=== PATIENT | female | born 1950 | race Caucasian/White ===

== ENCOUNTER → 2020-11-24 12:33 | Outpatient (CLI) | payer SELFPAY ==
[2020-11-12 13:47] VITALS: BMI 29.8
--- NOTE | 2020-11-24 12:40 | ECHOCS_ITS ---
Reason For Study: Afib Procedure This was a 2D Doppler, Color Flow transthoracic echocardiogram. The study was technically difficult. Contrast injection was performed. Exam performed in department. Left Ventricle Normal LV size. Left ventricular systolic function is normal. The estimated ejection fraction is 65 %. Unable to assess diastolic dysfunction. No regional wall motion abnormalities noted. Right Ventricle Normal RV size. Normal systolic function. Atria The left atrium is moderately enlarged. The right atrium is moderately enlarged. No doppler evidence for ASD. Bubble contrast study negative for right to left interatrial shunt. Mitral Valve There is mild mitral annular calcification. Mild diffuse mitral valve thickening. Mild (1+) mitral valve insufficiency. Tricuspid Valve Normal tricuspid valve. Mild to moderate (1-2+) tricuspid valve insufficiency. Right ventricular systolic pressure estimated to be 41 mmHg. Aortic Valve Trisinus/trileaflet aortic valve. Normal aortic valve. Pulmonic Valve The pulmonic valve is not well visualized. Great Vessels The aortic root is not well visualized. Pericardium/Pleural No pericardial effusion. Medication 22 gauge I.V. with prn adaptor inserted into right arm. Diluted definity 2ml given slow IV push to enhance endocardial definition. Performed a rapid injection of agitated mix of 9 cc saline and 1cc air to assess for atrial septal defect. MMode/2D Measurements & Calculations LVIDd: 4.6 cm IVSd: 1.1 cm LA dimension: 4.2 cm LVIDs: 2.9 cm LVPWd: 0.89 cm FS: 36.0 % LAV(MOD-bp): 78.9 ml LA A4 area: 24.3 cm2 RA A4 area: 20.8 cm2 LAV(MOD-bp) Indexed: 45.0 ml/m2 LAV(MOD-sp2): 73.8 ml LAV(MOD-sp4): 74.4 ml Doppler Measurements & Calculations MV E max cyn: 132.1 cm/sec Ao V2 max: 134.6 cm/sec AI max cyn: 463.0 cm/sec Ao max P.3 mmHg AI max P.8 mmHg AI dec slope: 376.0 cm/sec2 AI P1/2t: 360.7 msec LV V1 max: 98.6 cm/sec MR max cyn: 528.0 cm/sec PA V2 max: 100.3 cm/sec LV V1 max P.9 mmHg MR max P.5 mmHg TR max cyn: 308.1 cm/sec TR max P.1 mmHg Interpretation Summary The study was technically difficult. Contrast injection was performed. Left ventricular systolic function is normal. The estimated ejection fraction is 65 %. The left atrium is moderately enlarged. The right atrium is moderately enlarged. There is mild mitral annular calcification. Mild diffuse mitral valve thickening. Mild (1+) mitral valve insufficiency. Mild to moderate (1-2+) tricuspid valve insufficiency. Right ventricular systolic pressure estimated to be 41 mmHg. Unable to assess diastolic dysfunction. Bubble contrast study negative for right to left interatrial shunt. Ordering Physician: Kedar John Referring Physician: Chantelle Treadwell Performed By: Jorge Lutz RCS
== END ==
PROVIDERS: PCP Nurse Practitioner; Referring Provider Internal Medicine Cardiovascular Disease; Visit Provider Internal Medicine Cardiovascular Disease
DX: I48.91 Unspecified atrial fibrillation (principal); I10 Essential (primary) hypertension; E03.9 Hypothyroidism, unspecified
CPT/HCPCS: 93306; Q9957; A4216; C8929

== ENCOUNTER → 2021-06-16 10:08 | Outpatient (CLI) | payer SELFPAY ==
[2021-06-16 10:36] LABS: Hematocrit 42.2 % (37-47); Hemoglobin 13.8 g/dL (12.0-15.0); Mean Corp Hgb Conc 32.7 g/dL (32-36); Mean Corpuscular Hgb 29.2 pg (27.0-32.0); Mean Corpuscular Volume 89.4 fL (81-99); Mean Platelet Vol. 9.6 fl (6.2-12.0); Platelet Count 225 K/mm3 (150-450); RBC Distribution Width CV 13.9 % (11.6-14.6); RBC Distribution Width SD 45.8 fl (35.1-43.9); Red Blood Count 4.72 M/mm3 (4.2-5.4)
[2021-06-16 11:08] LABS: Anion Gap 4 (5-15); BUN 16 mg/dL (7-18); BUN/Creat Ratio 19.1 RATIO (10-20); Calcium,Total 9.5 mg/dL (8.5-10.1); Chloride 105 mmol/L (98-107); Creatinine, Serum 0.84 mg/dL (0.55-1.02); EST Glomerular Filtration Rate 72 mL/min (>60); Est Glom Filt Rate - Afr Amer 87 mL/min (>60); Glucose 108 mg/dL (74-106); Magnesium 2.5 mg/dL (1.6-2.6); Sodium Level 138 mmol/L (136-145); Thyroid Stim Hormone (TSH) 2.25 uIU/mL (0.358-3.74)
== END ==
PROVIDERS: PCP Family Medicine; Visit Provider Physician Assistant Medical
DX: I48.21 Permanent atrial fibrillation (principal); I10 Essential (primary) hypertension
CPT/HCPCS: 36415; 80048; 83735; 84443; 85027

== ENCOUNTER 2021-11-03 19:30 | Inpatient (IN) | payer OTHER, SELFPAY ==
[2021-11-03] VITALS (10 sets, daily range): BP systolic 163–204; BP diastolic 85–111; PULSE 96–117; RESP 17–20; TEMP 36.4–36.7; O2SAT 88–94; BMI 31.4; BMI 27.0
--- NOTE | 2021-11-03 19:46 | EKG12_ITS ---
Test Reason : SOB Blood Pressure : / mmHG Vent. Rate : 113 BPM Atrial Rate : 113 BPM P-R Int : 000 ms QRS Dur : 084 ms QT Int : 278 ms P-R-T Axes : 000 041 018 degrees QTc Int : 381 ms Atrial fibrillation Abnormal ECG Confirmed by SUSIE BROOKS, STEFANY ([id number]), editorial manager JA MITCHELL ([id number]) on 11/04/2021 1:32:03 PM Referred By: PING Confirmed By:MALINI RICHARDS MD
--- NOTE | 2021-11-03 19:49 | EX.ED.DYSGE1 ---
HPI History of Present Illness Chief Complaint: General Illness Narrative Narrative: Patient presents via EMS with generalized weakness and shortness of breath. She has past medical history of hypothyroidism, atrial fibrillation, on Eliquis and takes diltiazem daily. She was seen by Dr. Martinez yesterday and was noted to have wheezing and shortness of breath. It was reported that she tested for COVID and was negative, but because of her wheeziness she was placed on a Z-Alexander. Her states she took 2 tablets yesterday and began feeling tired. She took 1 tablet today. She denies any fever or chills. No dysuria or hematuria. She feels overall weak. [facility] Medical History (Updated 11/03/21 @ 21:50 by Solo Santos MD) Atrial fibrillation Hypertension Hypothyroidism Non-toxic multinodular goiter Home Medications apixaban 5 mg tablet 5 mg PO BID #60 tab 11/12/20 [Rx Last Taken Unknown] diltiazem HCl 120 mg capsule,24 hr,extended release 120 mg PO DAILY #90 cap 02/01/21 [Rx Last Taken Unknown] thyroid (pork) 30 mg tablet 30 mg PO DAILY tab 06/16/21 [History Last Taken Unknown] Allergy/AdvReac Type Severity Reaction Status Date / Time amoxicillin Allergy Unknown unknown Verified 11/03/21 19:41 Penicillins Allergy Unknown Unknown Verified 11/03/21 19:41 Family History Father Myocardial infarction Mother CVA (cerebral vascular accident) Sister Heart disease Surgical History History of total hysterectomy Social History (Updated 11/03/21 @ 21:[address] Maria Ines Masters MD) household members: spouse Smoking Status: Never smoker alcohol intake: never substance use type: does not use caffeine: Yes (occasional) ROS ROS ED ROS Narrative Constitutional: No fever, no chills. Generalized weakness. HEENT: No sore throat. No neck pain. No loss of vision. No rhinorrhea. Cardiovascular: No chest pain. No palpitations. No pedal edema. Respiratory: No cough, positive shortness of breath. Abdominal: No abdominal pain. No nausea. Positive vomiting x3 today, no hematemesis. Genitourinary: No dysuria. No hematuria. Musculoskeletal: No myalgias. No arthralgias. Neurologic: No headaches. No dizziness. No lightheadedness. Skin: No rash. No change in color. Psychiatric: No depression. No anxiety. EXAM Physical Exam Narrative Exam Narrative: Afebrile. Vital signs noted. HEENT: Normocephalic. Atraumatic. PERRL, EOMI. Neck soft and supple. No point tenderness or step off. Cardiovascular: Irregularly irregular tachycardia in the 120's. No murmurs, rubs, or gallops appreciated. Respiratory: No tachypnea. Positive expiratory wheeze bilateral bases. Moving a good amount of air. Gastrointestinal: Abdomen soft, nontender, with normoactive bowel sounds. No rebound or guarding. Neurological: Awake. Alert. Nonfocal, nonlateralizing. Skin: No rash. Normal color. No pallor. Musculoskeletal: No pedal edema. Full range of motion extremities. Const Vital Signs: 11/03/21 19:37 11/03/21 19:42 11/03/21 19:44 Temperature 97.6 F L Temperature Source Oral Pulse Rate 117 H Respiratory Rate 18 18 Respiratory Effort Normal Respiratory Pattern Normal Blood Pressure 204/109 H Blood Pressure Mean 140 Pulse Ox 92 88 Oxygen Delivery Method Room Air Room Air Oxygen Flow Rate (L/min) 11/03/21 19:46 11/03/21 19:49 11/03/21 20:00 Temperature Temperature Source Pulse Rate 117 H Respiratory Rate 18 20 H Respiratory Effort Respiratory Pattern Tachypnea Blood Pressure 192/102 H Blood Pressure Mean 132 Pulse Ox 94 Oxygen Delivery Method Nasal Cannula Oxygen Flow Rate (L/min) 2 11/03/21 20:14 11/03/21 20:37 11/03/21 21:18 Temperature 98 F Temperature Source Oral Pulse Rate 109 H 101 H 96 Respiratory Rate 17 20 H 18 Respiratory Effort Respiratory Pattern Blood Pressure 183/111 H 163/108 H 170/85 H Blood Pressure Mean 135 126 113 Pulse Ox 92 92 94 Oxygen Delivery Method Nasal Cannula Nasal Cannula Nasal Cannula Oxygen Flow Rate (L/min) 2 3 3 MDM MDM MDM Narrative Medical decision making narrative: Comprehensive work-up was pursued. Sepsis work-up was pursued because she had a low temperature. Her oxygen level did drop into the high 80s while at rest. She was placed on nasal cannula oxygen. She will be given albuterol/Atrovent nebulized treatment. I do feel that she may be having problems with pneumonia. She will be reswabbed for COVID. EKG demonstrates atrial fibrillation at 113 bpm. She was given a bolus of diltiazem 10 mg intravenously. She has elevated white count of 19.7. Lactic acid is normal at 1.3. Chest x-ray shows subtle increased reticular opacities in the right lower lobe without alveolar consolidation which may represent atypical infection or possibly scarring or atelectasis. Her oxygen did require to be increased to 3 L. Her CMP returns with a low sodium of 115, and hypokalemia of 3.0. She has normal creatinine. Glucose appropriately elevated at 194. High-sensitivity troponin negative at 15. BNP is slightly elevated at 194 which I think is more nonspecific. Her chest x-ray shows atelectasis versus increased reticular opacities in the right lower lobe. This could be an atypical infection. She has already received Zithromax. She is allergic to penicillins. I will start her on antibiotics. Her COVID swab is negative. Lactic acid normal at 1.3. Urinalysis shows no evidence of infection. Patient will be discussed with the hospitalist for admission to the PCU given her low sodium of 115. I have deferred antibiotics to the hospitalist. Disposition is admitted in guarded condition. Lab Data Attestation: I reviewed the patient's lab results. Labs: Laboratory Results - last 24 hr 11/03/21 11/03/21 11/03/21 19:55 19:55 19:55 WBC 19.7 H RBC 4.55 Hgb 13.3 Hct 37.6 MCV 82.6 MCH 29.2 MCHC 35.4 RDW Std Deviation 37.0 RDW Coeff of Ed 12.2 Plt Count 441 MPV 8.4 Immature Gran % (Auto) 3.000 H Neut % (Auto) 84.5 H Lymph % (Auto) 7.3 L [place] % (Auto) 4.8 Eos % (Auto) 0.1 Baso % (Auto) 0.3 Absolute Neuts (auto) 16.7 H Absolute Lymphs (auto) 1.44 Nucleated RBC % 0 Sodium 115 L* Potassium 3.0 L Chloride 76 L Carbon Dioxide 27.0 Anion Gap 12 BUN 8 Creatinine 0.68 Estim Creat Clear Calc 45.20 Est GFR (MDRD) Af Amer 110 Est GFR (MDRD) Non-Af 91 BUN/Creatinine Ratio 11.8 Glucose 194 H Lactic Acid Calcium 8.6 Magnesium Ferritin Total Bilirubin 1.30 H AST 63 H ALT 82 H Alkaline Phosphatase 88 Lactate Dehydrogenase Troponin I High Sens 15 B-Natriuretic Peptide 194.6 H Total Protein 7.8 Albumin 3.0 L Globulin 4.8 H Albumin/Globulin Ratio 0.6 L TSH Free T4 Urine Color Urine Clarity Urine pH Ur Specific [place] Urine Protein Urine Glucose (UA) Urine Ketones Urine Occult Blood Urine Nitrite Urine Bilirubin Urine Urobilinogen Ur Leukocyte Esterase Urine RBC Urine WBC Ur Squamous Epith Cells Urine Bacteria Urine Mucus 11/03/21 11/03/21 11/03/21 19:55 20:04 21:00 WBC RBC Hgb Hct MCV MCH MCHC RDW Std Deviation RDW Coeff of Ed Plt Count MPV Immature Gran % (Auto) Neut % (Auto) Lymph % (Auto) [place] % (Auto) Eos % (Auto) Baso % (Auto) Absolute Neuts (auto) Absolute Lymphs (auto) Nucleated RBC % Sodium Potassium Chloride Carbon Dioxide Anion Gap BUN Creatinine Estim Creat Clear Calc Est GFR (MDRD) Af Amer Est GFR (MDRD) Non-Af BUN/Creatinine Ratio Glucose Lactic Acid 1.3 Calcium Magnesium 2.2 Ferritin 473 H Total Bilirubin AST ALT Alkaline Phosphatase Lactate Dehydrogenase 358 H Troponin I High Sens B-Natriuretic Peptide Total Protein Albumin Globulin Albumin/Globulin Ratio TSH 1.17 Free T4 1.11 Urine Color Yellow Urine Clarity Clear Urine pH 7.0 Ur Specific [place] 1.010 Urine Protein 15 H Urine Glucose (UA) 100 H Urine Ketones 50 H Urine Occult Blood Negative Urine Nitrite Negative Urine Bilirubin Negative Urine Urobilinogen Normal Ur Leukocyte Esterase Negative Urine RBC 0 SEEN Urine WBC 0 SEEN Ur Squamous Epith Cells 0 SEEN Urine Bacteria 0 SEEN Urine Mucus 0 SEEN Radiography Diagnostic Testing: Clinical Impression(s) from Imaging Studies Chest X-Ray 11/03/21 20:10 IMPRESSION: 1. Subtle increased reticular opacities right lower lobe without alveolar consolidation may represent atypical infection or possibly scarring and/or atelectasis. 2. Splayed appearance of the right and left mich may be indicative of left atrial enlargement. Electronically Signed: Jesús Rodarte DO at 20:23 EST Tel , Service support , Discharge Plan Triage Chief Complaint: General Illness ED Provider: Solo Santos Dx/Rx/DC Orders Clinical Impression: Atrial fibrillation, Pneumonia, Hypoxia, Hyponatremia, Hypokalemia, Weakness Primary Care Provider: Armando Martinez
[2021-11-03] MEDS: Ipratropium/Albuterol Sulfate 3 ML AMPUL.NEB INHALATION (19:59)
[2021-11-03 20:02] LABS: Absolute Lymphocyte Count 1.44 X10^3/uL (0.83-4.51); Absolute Neutrophil Count 16.7 X10^3/uL (2.0-7.7); Basophil# 0.05 X10^3/uL; Basophil% 0.3 % (0-1); Eosinophil# 0.01 X10^3/uL; Eosinophils% 0.1 % (0-5); Hematocrit 37.6 % (37-47); Hemoglobin 13.3 g/dL (12.0-15.0); Lymphocyte # 1.44 X10^3/ul (0.83-4.51); Lymphocyte % 7.3 % (19-41); Mean Corp Hgb Conc 35.4 g/dL (32-36); Mean Corpuscular Hgb 29.2 pg (27.0-32.0); Mean Corpuscular Volume 82.6 fL (81-99); Mean Platelet Vol. 8.4 fl (6.2-12.0); Monocyte# 0.95 X10^3/uL; Monocyte% 4.8 % (0-10); NRBC Flagged by Analyzer 0 % (0-5); Neutrophil # 16.67 X10^3/uL (2.7-7.7); Neutrophil % 84.5 % (47-70); Platelet Count 441 K/mm3 (150-450); RBC Distribution Width CV 12.2 % (11.6-14.6); Red Blood Count 4.55 M/mm3 (4.2-5.4); White Blood Count 19.7 K/mm3 (4.4-11.0)
[2021-11-03] MEDS: dilTIAZem 25 MG/5 ML Vial 10 MG IV BOLUS (20:06)
--- NOTE | 2021-11-03 20:10 | RAD_ITS ---
INDICATION: shortness of breath EXAMINATION/TECHNIQUE: X-RAY - XR Chest 1 View COMPARISON: None. FINDINGS: LINES/DEVICES: None. LUNGS: Symmetric normal lung volumes. In the right lower lobe, lower hilar region there is subtle increased reticular opacities without definite alveolar consolidation. No obscuration of heart border or right hemidiaphragm. No airspace opacity or abnormal interstitial pattern. No nodule or mass. No pleural effusion or pneumothorax. MEDIASTINUM AND CARDIOVASCULAR STRUCTURES: Normal size and contour of the cardiomediastinal silhouette. No evidence of pulmonary vascular congestion. There is nonspecific splaying of the mich potentially representing left atrial enlargement. BONES AND SOFT TISSUES: No abnormality within limits of the exam. RAD/Chest 1 View (Portable) IMPRESSION: 1. Subtle increased reticular opacities right lower lobe without alveolar consolidation may represent atypical infection or possibly scarring and/or atelectasis. 2. Splayed appearance of the right and left mich may be indicative of left atrial enlargement. Electronically Signed: Jesús Rodarte DO at 20:23 EST Tel , Service support ,
[2021-11-03 20:40] LABS: Lactic Acid 1.3 mmol/L (0.4-1.9)
[2021-11-03 20:41] LABS: BNP,B-Type NATRIURETIC PEPTIDE 194.6 pg/mL (0-100)
[2021-11-03 21:03] LABS: Bacteria 0 SEEN /hpf (None Seen); Mucous, Urine 0 SEEN /hpf (<or=2+); Red Blood Cells-Urine 0 SEEN /hpf (0-5); Squamous Epithelial Cells - UA 0 SEEN /hpf (5-10); White Blood Cells 0 SEEN /hpf (0-5)
[2021-11-03 21:05] LABS: Color, Urine Yellow (Yellow); Glucose, Dipstick 100 mg/dl (Normal); Ketone-Dipstick 50 mg/dl (Negative); Leukocyte Esterase-Dipstick Negative /ul (Negative); Nitrite-Dipstick Negative (Negative); Occult Blood-Urine Negative /ul (Negative); Protein-Dipstick 15 mg/dl (Negative); Urine Bilirubin Dipstick Negative (Negative); Urine Clarity Clear (Clear); Urine Urobilinogen Normal (Normal)
[2021-11-03 21:11] LABS: ALB/GLOB Ratio 0.6 RATIO (0.9-2.4); AST(SGOT) 63 U/L (15-37); Alanine Aminotransfer ALT/SGPT 82 U/L (13-56); Alkaline Phosphatase 88 U/L (45-117); Anion Gap 12 (5-15); BUN 8 mg/dL (7-18); BUN/Creat Ratio 11.8 RATIO (10-20); Calcium,Total 8.6 mg/dL (8.5-10.1); Chloride 76 mmol/L (98-107); Creatinine, Serum 0.68 mg/dL (0.55-1.02); EST Glomerular Filtration Rate 91 mL/min (>60); Est Glom Filt Rate - Afr Amer 110 mL/min (>60); Globulin 4.8 g/dL (2.2-4.2); Glucose 194 mg/dL (74-106); Protein, Total 7.8 g/dL (6.4-8.2); Sodium Level 115 mmol/L (136-145); Troponin-I HS 15 pg/mL (3.0-54.0)
--- NOTE | 2021-11-03 21:35 | HP.PCM.HOS_ITS ---
HPI - General General Date of Admission: 11/03/21 Date of Service: 11/03/21 Chief Complaint: Cough, fatigue, malaise. HPI Narrative The patient is a 71 y/o Antony F w/ PMHx: PAF, HTN, Hypothyroidism w/ Hx nontoxic multinodular goiter, Obesity who presents to the [facility] ED on 11/03/21 with history of progressively worsening fatigue, malaise, cough, dyspnea as well as nausea without emesis in addition to wheezing over the last several days (7 days total) with PCP evaluation the day prior with start of Z-Alexander at that time with no significant improvement prompting ED evaluation. She did have a COVID test in the office at that time that was negative. Her reports feeling well without any recent illness. She is not vaccinated against COVID. Work-up in the ED included T97.6, heart rate initially 117 with most recent repeat 101, BP i nitially 204/109 with most recent repeat 163/108, respiratory rate 18, down to 88% on room air with improvement to 92% on 3 L nasal cannula, CBC with WBC 19.7, hemoglobin 13.3, platelet 441 with left shift, CMP with sodium 115, potassium 3, chloride 76, glucose 194, total bilirubin 1.30, AST/ALT 63/82, lactic acid 1.3, troponin high-sensitivity 15, BNP 194.6, urinalysis unremarkable, COVID rapid a ntigen is negative, chest x-ray with subtle increased reticular opacities right lower lobe without alveolar consolidation possibly atypical infection or scarring or atelectasis, splayed appearance right and left mich possibly indicative of atrial enlargement, rapid COVID antigen negative, blood culture x2 pending per ED, urine culture pending per ED, EKG with atrial fibrillation with RVR. In the ED patient ministered DuoNeb therapy as well as diltiazem 10 mg bolus x1. [facility] Medical History (Updated 11/03/21 @ 21:50 by Solo Santos MD) Atrial fibrillation Hypertension Hypothyroidism Non-toxic multinodular goiter Home Medications apixaban 5 mg tablet 5 mg PO BID #60 tab 11/12/20 [Rx Last Taken Unknown] diltiazem HCl 120 mg capsule,24 hr,extended release 120 mg PO DAILY #90 cap 02/01/21 [Rx Last Taken Unknown] thyroid (pork) 30 mg tablet 30 mg PO DAILY tab 06/16/21 [History Last Taken Unknown] Allergy/AdvReac Type Severity Reaction Status Date / Time amoxicillin Allergy Unknown unknown Verified 11/03/21 19:41 Penicillins Allergy Unknown Unknown Verified 11/03/21 19:41 Family History Father Myocardial infarction Mother CVA (cerebral vascular accident) Sister Heart disease Surgical History History of total hysterectomy Social History (Updated 11/03/21 @ 21:[address] Maria Ines Masters MD) household members: spouse Smoking Status: Never smoker alcohol intake: never substance use type: does not use caffeine: Yes (occasional) ROS ROS Narrative Admission Review of Systems: CONSTITUTIONAL: No weight loss, fever, chills, + weakness or fatigue. HEENT: Eyes: No visual loss, blurred vision, double vision or yellow sclerae. Ears, Nose, Throat: No hearing loss, sneezing, sore throat, congestion. SKIN: No rash or itching, lesions, wounds. CARDIOVASCULAR: No chest pain, chest pressure or chest discomfort, palpitations, edema, orthopnea, syncopal events. RESPIRATORY: + Shortness of breath, cough, No marked sputum, wheezing, hemoptysis. GASTROINTESTINAL: + Anorexia, nausea without vomiting, No diarrhea, abdominal pain, melena, BRBPR. GENITOURINARY: No dysuria, frequency, urgency or retention. NEUROLOGICAL: No headache, dizziness, syncope, paralysis, ataxia, numbness or tingling in the extremities, focal weakness, change in bowel or bladder control, seizure. MUSCULOSKELETAL: + Muscle, back pain, joint pain or stiffness. HEMATOLOGIC: No anemia, bleeding or bruising. LYMPHATICS: No enlarged nodes. No history of splenectomy. PSYCHIATRIC: No history of depression or anxiety. ENDOCRINOLOGIC: No reports of sweating, cold or heat intolerance. No polyuria or polydipsia. ALLERGIES: No history of asthma, hives, eczema or rhinitis. Vital Signs Vital Signs Vital Signs: 11/03/21 19:37 11/03/21 19:42 11/03/21 19:44 Temperature 97.6 F L Temperature Source Oral Pulse Rate 117 H Respiratory Rate 18 18 Respiratory Effort Normal Respiratory Pattern Normal Blood Pressure 204/109 H Blood Pressure Mean 140 Pulse Ox 92 88 Oxygen Delivery Method Room Air Room Air Oxygen Flow Rate (L/min) 11/03/21 19:46 11/03/21 19:49 11/03/21 20:00 Temperature Temperature Source Pulse Rate 117 H Respiratory Rate 18 20 H Respiratory Effort Respiratory Pattern Tachypnea Blood Pressure 192/102 H Blood Pressure Mean 132 Pulse Ox 94 Oxygen Delivery Method Nasal Cannula Oxygen Flow Rate (L/min) 2 11/03/21 20:14 11/03/21 20:37 11/03/21 21:18 Temperature 98 F Temperature Source Oral Pulse Rate 109 H 101 H 96 Respiratory Rate 17 20 H 18 Respiratory Effort Respiratory Pattern Blood Pressure 183/111 H 163/108 H 170/85 H Blood Pressure Mean 135 126 113 Pulse Ox 92 92 94 Oxygen Delivery Method Nasal Cannula Nasal Cannula Nasal Cannula Oxygen Flow Rate (L/min) 2 3 3 Weight Weight: 183 lb 3.266 oz Body Mass Index (BMI) 31.4 Physical Exam Narrative Physical Examination: General: Awake, alert, oriented x 3 and cooperative, seated upright in the ED bed, fatigued and ill-appearing, no evidence of any respiratory distress. Skin: Normal color, normal turgor, no icterus, no cyanosis. HEENT: AT/NC, EOMI, PERRLA, dry MM, no carotid bruits or JVD noted. Lungs: Diffusely diminished, greater bases, increased respiratory rate, no rales, ronchi or wheezing. Heart: Tachycardic, irregular, improving; no gallop, rub audible. Abdomen: Soft, nontender to palpation, nondistended, obese, distant hypoactive bowel sounds, no obvious HSM. Extremities: No cyanosis, no clubbing, mild bilateral ankle not markedly pitting edema. Neurological: Patient awake, alert, oriented as noted, cognitive function intact; pupils equally reactive to light and accommodation, cranial nerves II- XII grossly normal, moving all 4 extremities, no focal deficits, strength moderately to severely globally decreased secondary to acute presentation. Psychiatric: Affect appears fatigued, ill-appearing, no acute evidence of depressive or anxiety feelings. Results Lab / Micro Data Result Diagrams: 11/03/21 19:55 11/03/21 19:55 Labs: Laboratory Results - last 24 hr 11/03/21 19:55: WBC 19.7 H, RBC 4.55, Hgb 13.3, Hct 37.6, MCV 82.6, MCH 29.2, MCHC 35.4, RDW Std Deviation 37.0, RDW Coeff of Ed 12.2, Plt Count 441, MPV 8.4, Immature Gran % (Auto) 3.000 H, Neut % (Auto) 84.5 H, Lymph % (Auto) 7.3 L, [place] % (Auto) 4.8, Eos % (Auto) 0.1, Baso % (Auto) 0.3, Absolute Neuts (auto) 16.7 H, Absolute Lymphs (auto) 1.44, Nucleated RBC % 0 11/03/21 19:55: Sodium 115 L*, Potassium 3.0 L, Chloride 76 L, Carbon Dioxide 27.0, Anion Gap 12, BUN 8, Creatinine 0.68, Estim Creat Clear Calc 45.20, Est GFR (MDRD) Af Amer 110, Est GFR (MDRD) Non-Af 91, BUN/Creatinine Ratio 11.8, Glucose 194 H, Calcium 8.6, Total Bilirubin 1.30 H, AST 63 H, ALT 82 H, Alkaline Phosphatase 88, Troponin I High Sens 15, Total Protein 7.8, Albumin 3.0 L, Globulin 4.8 H, Albumin/Globulin Ratio 0.6 L 11/03/21 19:55: B-Natriuretic Peptide 194.6 H 11/03/21 20:04: Lactic Acid 1.3 11/03/21 21:00: Urine Color Yellow, Urine Clarity Clear, Urine pH 7.0, Ur Specific [place] 1.010, Urine Protein 15 H, Urine Glucose (UA) 100 H, Urine Ke tones 50 H, Urine Occult Blood Negative, Urine Nitrite Negative, Urine Bilirubin Negative, Urine Urobilinogen Normal, Ur Leukocyte Esterase Negative, Urine RBC 0 SEEN, Urine WBC 0 SEEN, Ur Squamous Epith Cells 0 SEEN, Urine Bacteria 0 SEEN, Urine Mucus 0 SEEN Micro: Microbiology 11/03/21 20:06 Nasal Secretion SARS-CoV-2 Antigen (Rapid) - Final Radiology Impression Chest X-Ray 11/03/21 20:10 IMPRESSION: 1. Subtle increased reticular opacities right lower lobe without alveolar consolidation may represent atypical infection or possibly scarring and/or atelectasis. 2. Splayed appearance of the right and left mich may be indicative of left atrial enlargement. Electronically Signed: Jesús Rodarte at 20:23 EST Tel , Service support , Assessment & Plan Assessment/Plan (1) Pneumonia: QUALIFIERS: Laterality: right Lung location: lower lobe of lung Pneumonia type: due to unspecified organism Qualified Code(s): J18.9 - Pneumonia, unspecified organism (2) Hypoxia: (3) Atrial fibrillation with RVR: (4) Acute hyponatremia: (5) Elevated LFTs: PLAN: The patient is a 71 y/o F w/ PMHx: PAF, HTN, Hypothyroidism w/ Hx nontoxic multinodular goiter, Obesity who presents to the [facility] ED on 11/03/21 with history of progressively worsening fatigue, malaise, cough, dyspnea as well as nausea without emesis in addition to wheezing over the last several days with PCP evaluation the day prior with start of Z-Alexander at that time with no significant improvement prompting ED evaluation. #1. Community Acquired Pneumonia with Hypoxia: CXR in the ED w/ subtle increased reticular opacities right lower lobe possibly pneumonia. Will admit to PCU given #2, maintain on oxygen with wean as tolerated to room air, PRN albuterol, maintained on IV Levaquin given allergies noted, HOB, IS parameters w/ pending sputum cultures and urine antigens. Respiratory panel is not available. Bld cx x 2 obtained in the ED and pending. Will request COVID PCR to be certain given timeline and request COVID panel. #2. Paroxsymal atrial fibrillation with RVR likely secondary to #1: EKG in ED w/ atrial fibrillation w/ RVR. Patient administered diltiazem 10 mg bolus x1 in ED. Will maintain on telemetry, obtain cardiac enzyme serial set, obtain magnesium level, 11/24/2020 echocardiogram with EF 65%, moderately enlarged LA and RA, mild MVI, mild to moderate TVR, RVSP 41 mmHg, negative bubble contrast shunt study, obtain TSH/FT4 level, continue patient home Eliquis regimen, given rate improvement we will continue patient home diltiazem regimen with dose x 1 now but may alter if rate further increases. #3. Acute hyponatremia, suspected component hypovolemic: Admission sodium 115, chloride 76, will judiciously hydrate, serial BMPs will be obtained to avoid significant quick overcorrection, will maintain on property assessment monitor, TSH/FT4, magnesium, FeNa, Uosm requested. #4. Elevated bilirubin, LFTs: Likely secondary to acute presentation #1, total bilirubin 1.30, AST/ALT 63/82, awaiting COVID repeat testing is certainly could also be the etiology, we will continue treatment as noted, repeat CMP in a.m. #5. Hypokalemia: Admission K+ 3.0, magnesium level requested, supplementation given, repeat level in AM. #6. History of multinodular goiter with hypothyroidism: We will continue thyroid supplementation. TSH and FT4 pending. #7. Hypertension: We will continue patient home diltiazem regimen, bolus given in the ED, resume oral regimen with dose now as noted above, as needed IV hydralazine. #8. Obesity: Weight loss and lifestyle changes encouraged. #9. DVT prophylaxis: SCDs, continue home Eliquis regimen. #10. CODE status: Patient does not have healthcare power of staff attorney or living will in place. Given presentation with hypoxia with pneumonia, still possibly COVID with pending work-up, discussed CODE status at length including difference between FULL code, DNR-CCA and DNR-CC status. Following discussions about the differences in these status, requested Full Code status. Advanced Care Planning Face to Face Time: 16 minutes. Charges/Coding Visit Charges Inpatient E&M: 31550 Init Hosp L3 Procedures Hospitalists Procedures: 16798 Advncd Care Plan 30 Min
[2021-11-03] MEDS: 0.9% Normal Saline 1,000 ML 200 ML IV (22:03)
[2021-11-03] MEDS: Potassium Chloride 10mEq/100mL 10 MEQ/100 ML IV.SOLN. 100 MEQ IV BOLUS ×2 (22:03→23:03)
[2021-11-03 22:11] LABS: Ferritin 473 ng/mL (8-252); LDH 358 U/L (84-246); Magnesium 2.2 mg/dL (1.6-2.6); T4 Free Direct 1.11 ng/dL (0.76-1.46); Thyroid Stim Hormone (TSH) 1.17 uIU/mL (0.358-3.74)
[2021-11-03 22:29] LABS: D-Dimer Quantitative (DVT/PE) 0.92 FEU/ug/m (0.27-0.49)
[2021-11-03 22:36] LABS: Procalcitonin 0.05 ng/mL (0.00-0.09)
--- NOTE | 2021-11-03 23:01 | PCS.PANDOC ---
PANDEMIC DOCUMENTATION INITIATED: Date: 11/03/21 Time: 2199
[2021-11-03] MEDS: levoFLOXacin IV 750 MG/150 ML BAG 100 MG IV (23:18)
[2021-11-03] MEDS: APIXABAN 5 MG TABLET PO (23:18)
[2021-11-03] MEDS: BENZOCAINE/MENTHOL 1 LOZENGE MUCOUS MEM (23:18)
[2021-11-03] MEDS: 0.9% Normal Saline 1,000 ML 125 ML IV (23:19)
[2021-11-03 23:30] LABS: Anion Gap 12 (5-15); BUN 7 mg/dL (7-18); BUN/Creat Ratio 13.5 RATIO (10-20); Calcium,Total 7.9 mg/dL (8.5-10.1); Chloride 77 mmol/L (98-107); Creatinine, Serum 0.52 mg/dL (0.55-1.02); EST Glomerular Filtration Rate 124 mL/min (>60); Est Glom Filt Rate - Afr Amer 150 mL/min (>60); Glucose 178 mg/dL (74-106); Potassium 3.3 mmol/L (3.5-5.1); Sodium Level 116 mmol/L (136-145)
[2021-11-03] MEDS: MELATONIN 3 MG TABLET PO (23:50)
[2021-11-04] VITALS (19 sets, daily range): BP systolic 98–169; BP diastolic 68–95; PULSE 75–120; RESP 14–24; TEMP 36.5–37; O2SAT 92–97
[2021-11-04] MEDS: Potassium Chloride 10mEq/100mL 10 MEQ/100 ML IV.SOLN. 100 MEQ IV BOLUS ×2 (00:03→01:14)
[2021-11-04 00:56] LABS: Anion Gap 11 (5-15); BUN 6 mg/dL (7-18); BUN/Creat Ratio 12.2 RATIO (10-20); Calcium,Total 7.8 mg/dL (8.5-10.1); Chloride 78 mmol/L (98-107); Creatinine, Serum 0.49 mg/dL (0.55-1.02); EST Glomerular Filtration Rate 133 mL/min (>60); Est Glom Filt Rate - Afr Amer 160 mL/min (>60); Glucose 188 mg/dL (74-106); Potassium 3.6 mmol/L (3.5-5.1); Sodium Level 116 mmol/L (136-145); Troponin-I HS 22 pg/mL (3.0-54.0)
[2021-11-04] MEDS: Ondansetron 4 MG/2 ML Vial IV (00:58)
[2021-11-04] MEDS: 0.9% Saline Lock 10 ML Syringe IV ×5 (00:58→20:03)
[2021-11-04] MEDS: proCHLORPERazine 10 MG/2 ML Vial 5 MG IV (01:30)
[2021-11-04] MEDS: dilTIAZem 25 MG/5 ML Vial 20 MG IV BOLUS (01:52)
[2021-11-04 02:23] LABS: Absolute Lymphocyte Count 1.52 X10^3/uL (0.83-4.51); Absolute Neutrophil Count 17.6 X10^3/uL (2.0-7.7); Basophil# 0.05 X10^3/uL; Basophil% 0.2 % (0-1); Eosinophil# 0.03 X10^3/uL; Eosinophils% 0.1 % (0-5); Hematocrit 34.1 % (37-47); Hemoglobin 12.3 g/dL (12.0-15.0); Lymphocyte # 1.52 X10^3/ul (0.83-4.51); Lymphocyte % 7.2 % (19-41); Mean Corp Hgb Conc 36.1 g/dL (32-36); Mean Corpuscular Hgb 29.1 pg (27.0-32.0); Mean Corpuscular Volume 80.8 fL (81-99); Mean Platelet Vol. 8.4 fl (6.2-12.0); Monocyte# 1.45 X10^3/uL; Monocyte% 6.8 % (0-10); NRBC Flagged by Analyzer 0 % (0-5); Neutrophil # 17.55 X10^3/uL (2.7-7.7); Neutrophil % 82.7 % (47-70); Platelet Count 396 K/mm3 (150-450); RBC Distribution Width CV 11.9 % (11.6-14.6); Red Blood Count 4.22 M/mm3 (4.2-5.4); White Blood Count 21.2 K/mm3 (4.4-11.0)
[2021-11-04 02:42] LABS: Troponin-I HS 26 pg/mL (3.0-54.0)
[2021-11-04 02:48] LABS: Anion Gap 9 (5-15); BUN 6 mg/dL (7-18); BUN/Creat Ratio 11.3 RATIO (10-20); Calcium,Total 7.7 mg/dL (8.5-10.1); Chloride 80 mmol/L (98-107); Creatinine, Serum 0.53 mg/dL (0.55-1.02); EST Glomerular Filtration Rate 121 mL/min (>60); Est Glom Filt Rate - Afr Amer 147 mL/min (>60); Glucose 165 mg/dL (74-106); Potassium 3.8 mmol/L (3.5-5.1); Sodium Level 116 mmol/L (136-145)
--- NOTE | 2021-11-04 03:23 | CT_ITS ---
STUDY: CTA CHEST REASON FOR EXAM: Female, 71 years old. Elevated D-dimer RADIATION DOSAGE (If Supplied By Facility): CTDIvol = ( 13.17 ) mGy, DLP = ( 519.98 ) mGycm TECHNIQUE: The examination was performed with the intravenous administration of 75 mL of Isovue-370. Post-processing of the angiographic images was performed, with multiplanar reformation and 3D reconstruction. Individualized dose optimization techniques were used for this CT. COMPARISON: None. FINDINGS: Cardiac monitoring leads are present. Normal enhancement of the main pulmonary artery and right and left pulmonary arteries. Normal enhancement of the bilateral peripheral pulmonary arteries. There is no demonstrated pulmonary embolism. There is prominence of the main pulmonary arteries with peripheral pulmonary vascular congestion. There is atherosclerotic calcification of the aortic arch with tortuosity. There is no demonstrated aortic dissection. There is cardiomegaly. There are calcifications of the coronary arteries. There are visualized mediastinal lymph nodes, which are within normal size limits, and with normal morphology. Normal hilar regions. Normal visualized trachea and bronchi. The lungs are well expanded. There is airspace consolidation in both lower lobes, left greater than right. There are some patchy groundglass attenuation in the right upper lobe. There appear to be small pleural effusions. Normal chest wall structures. Normal osseous structures. There is diffuse enlargement of the adrenal glands suggesting adrenal hyperplasia. CT/CTA Chest W/WO Contrast IMPRESSION: 1. No CTA demonstrated pulmonary embolism or arterial dissection. 2. Cardiomegaly and pulmonary edema. 3. Bilateral lower lobe airspace consolidation consistent with pneumonia. Electronically Signed: Gudelia Lara MD at 5:12 EST , Service support ,
[2021-11-04 03:30] LABS: Urine Sodium 126 mmol/L (Not Establ.)
[2021-11-04 03:31] LABS: Osmolality, Urine 418 mOsm/KG
[2021-11-04 05:21] LABS: M R Staph aureus DNA By PCR Negative (Negative); Probe Check PASS; Specimen Processing Control PASS
--- NOTE | 2021-11-04 05:44 | ECHOD_ITS ---
Reason For Study: CHF Procedure This was a 2D Doppler, Color Flow transthoracic echocardiogram. The study was technically difficult. Exam performed portable in patient room. Left Ventricle Normal LV size. The estimated ejection fraction is 65 %. No evidence for diastolic dysfunction. No regional wall motion abnormalities noted. Right Ventricle Normal RV size. Normal systolic function. Atria The left atrium is severely enlarged. The right atrium is moderately enlarged. No doppler evidence for ASD. Mitral Valve There is no mitral valve stenosis. Moderate (2+) mitral valve insufficiency. Tricuspid Valve There is no tricuspid stenosis. Moderate (2+) tricuspid valve insufficiency. Pulmonary artery systolic pressure is 60 mmHg. Aortic Valve Trisinus/trileaflet aortic valve. There is no aortic stenosis. Mild (1+) aortic valve insufficiency. Pulmonic Valve There is no pulmonic valvular stenosis. No pulmonic valve insufficiency. Great Vessels Normal aortic root. Pericardium/Pleural No pericardial effusion. MMode/2D Measurements & Calculations LVIDd: 4.4 cm IVSd: 0.85 cm Ao root diam: 3.2 cm LVIDs: 3.0 cm LVPWd: 0.85 cm RVDd: 3.9 cm FS: 32.7 % LAV(MOD-bp): 82.7 ml LVAd ap4: 21.8 cm2 LVAd ap2: 22.9 cm2 LAV(MOD-bp) Indexed: 46.9 ml/m2 LVLd ap4: 6.6 cm LVLd ap2: 6.7 cm LAV(MOD-sp2): 80.8 ml EDV(MOD-sp4): 60.3 ml EDV(MOD-sp2): 68.2 ml LAV(MOD-sp4): 76.8 ml EDV(sp4-el): 61.1 ml EDV(sp2-el): 66.8 ml LVAs ap4: 12.4 cm2 LVAs ap2: 13.1 cm2 LVLs ap4: 5.2 cm LVLs ap2: 6.0 cm ESV(MOD-sp4): 24.6 ml ESV(MOD-sp2): 25.5 ml ESV(sp4-el): 24.7 ml ESV(sp2-el): 24.1 ml EF(MOD-sp4): 59.2 % EF(MOD-sp2): 62.5 % EF(sp4-el): 59.6 % SV(MOD-sp4): 35.7 ml SV(MOD-sp2): 42.6 ml SV(sp4-el): 36.4 ml LA dimension(2D): 4.8 cm LA A4 area: 25.0 cm2 RA A4 area: 21.2 cm2 Doppler Measurements & Calculations MV E max cyn: 159.6 cm/sec Ao V2 max: 148.4 cm/sec AI max cyn: 459.1 cm/sec Ao max P.9 mmHg AI max P.4 mmHg AI dec slope: 438.7 cm/sec2 AI P1/2t: 306.5 msec LV V1 max: 110.5 cm/sec TR max cyn: 350.3 cm/sec LV V1 max P.9 mmHg TR max P.1 mmHg ECHO/Echo Complete Interpretation Summary The estimated ejection fraction is 65 %. No evidence for diastolic dysfunction. The left atrium is severely enlarged. The right atrium is moderately enlarged. Moderate (2+) mitral valve insufficiency. Moderate (2+) tricuspid valve insufficiency. Pulmonary artery systolic pressure is 60 mmHg. Mild (1+) aortic valve insufficiency. Ordering Physician: Maria Ines Masters Referring Physician: DEE MADDOX Performed By: Sylvia Brown, RDCS, RVT
[2021-11-04] MEDS: Thyroid 15 MG Tablet 30 MG PO (05:54)
[2021-11-04] MEDS: Metoprolol Tartrate 5 MG/5 ML Vial IV (06:47)
[2021-11-04 07:07] LABS: ALB/GLOB Ratio 0.7 RATIO (0.9-2.4); AST(SGOT) 51 U/L (15-37); Alanine Aminotransfer ALT/SGPT 67 U/L (13-56); Albumin, Serum 2.7 g/dL (3.2-5.0); Alkaline Phosphatase 75 U/L (45-117); Anion Gap 8 (5-15); BUN 6 mg/dL (7-18); BUN/Creat Ratio 12.2 RATIO (10-20); Calcium,Total 8.1 mg/dL (8.5-10.1); Chloride 79 mmol/L (98-107); Creatinine, Serum 0.49 mg/dL (0.55-1.02); EST Glomerular Filtration Rate 132 mL/min (>60); Est Glom Filt Rate - Afr Amer 160 mL/min (>60); Glucose 161 mg/dL (74-106); Potassium 3.5 mmol/L (3.5-5.1); Protein, Total 6.7 g/dL (6.4-8.2); Sodium Level 113 mmol/L (136-145)
[2021-11-04] MEDS: Budesonide Respules 0.5 MG/2 ML AMPUL.NEB. INHALATION ×2 (08:42→21:48)
[2021-11-04] MEDS: dilTIAZem CD 120 MG Capsule PO (09:59)
[2021-11-04] MEDS: APIXABAN 5 MG TABLET PO ×2 (09:59→20:04)
--- NOTE | 2021-11-04 10:39 | PCM.CONS.R ---
Assessment & Plan Assessment/Plan (1) Hyponatremia: PLAN: - The patient has severe hyponatremia. However, there are no worrisome symptoms of hyponatremia such as headache, nausea, or ataxia. She is not confused. -Therefore, there is no need for hypertonic saline today. -The patient appears to be euvolemic on exam. 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 -I encouraged the patient to increase protein/solute intake. This will help the kidney obligate water loss. -I will also limit water intake to 1.5 L/day. -I will check urine sodium and potassium. If the summation of urine sodium and potassium is greater than serum sodium, I will add furosemide to help correct hyponatremia more quickly. -We should check serum sodium every 6 hours today. (2) Hypertension: PLAN: - BP is acceptable. -The patient was not on hydrochlorothiazide or other thiazide diuretic prior to admission. (3) Hypothyroidism: QUALIFIERS: Hypothyroidism type: unspecified Qualified Code(s): E03.9 - Hypothyroidism, unspecified PLAN: - TSH on 11/03/2021 was normal. Continue current dose of levothyroxine. -Low suspicion that hypothyroidism is contributing to hyponatremia since it is well treated. (4) Pneumonia: PLAN: - Antimicrobial treatment as per hospital medicine service. HPI Consult Data Date of Consult: 11/04/21 HPI Narrative Reason for Consultation: Hyponatremia HPI Narrative: RAJESH RAMOS is a 71-year-old woman with past history of hypertension, hypothyroidism, and chronic atrial fibrillation. The patient presented initially to her PCP, Dr. Martinez, on 11/01/2021 with a 2 days history of cough, wheezing and shortness of breath. The patient was started on azithromycin, but she presented to the emergency department on 11/03/2021 with progressive weakness. During the work-up in the emergency department, the patient was found to have serum sodium of 115 mmol/L. The only available prior sodium was from 06/16/2021 at 138 mmol/L. The patient is unaware of any prior history of hyponatremia. Serum sodium increased to 116 last night and rn support services. However, serum sodium decreased again at 06:10 this morning down to 113 mmol/L. The patient denies headache, persistent nausea, ataxia, or confusion. The patient reports that her appetite has been poor for about 1 week leading up to presentation to the hospital. There has been no recent medication changes other than the initiation of azithromycin on 11/01/2021. The patient uses NSAIDs occasionally, but she has not been taking any ibuprofen or Aleve for more than 1 week prior to admission. [facility] Medical History Atrial fibrillation Hypertension Hypothyroidism Non-toxic multinodular goiter Home Medications apixaban 5 mg tablet 5 mg PO BID #60 tab 11/12/20 [Rx Last Taken Unknown] diltiazem HCl 120 mg capsule,24 hr,extended release 120 mg PO DAILY #90 cap 02/01/21 [Rx Last Taken Unknown] thyroid (pork) 30 mg tablet 30 mg PO DAILY tab 06/16/21 [History Last Taken Unknown] Allergy/AdvReac Type Severity Reaction Status Date / Time amoxicillin Allergy Unknown unknown Verified 11/03/21 19:41 Penicillins Allergy Unknown Unknown Verified 11/03/21 19:41 Family History Father Myocardial infarction Mother CVA (cerebral vascular accident) Sister Heart disease Surgical History History of total hysterectomy Social History household members: spouse Smoking Status: Never smoker alcohol intake: never substance use type: does not use caffeine: Yes (occasional) ROS ROS Narrative 10/03 ROS was done. It is otherwise noncontributory. Physical Exam Narrative General: Alert and oriented x3, NAD. HEENT: Normocephalic, atraumatic, PERRLA, EOMI, mucous membranes moist, there is no mucosal erythema. Hearing is intact. Neck: Supple, no JVD. Heart: Normal S1, S2. No rubs, murmurs or gallops. Lungs: Decreased breath sound at bases bilaterally. There is mild expiratory wheezing. Abdomen: Normal bowel sounds, soft, nontender, no guarding or rebound. Extremity: No clubbing or cyanosis. There is no edema of the lower extremities. Musculoskeletal: Full passive range of motion. There is no joint swelling. Skin: Warm and dry. No rash. Psychiatric: Mood and affect are normal. Lab / Micro Data Result Diagrams: 11/04/21 02:17 11/04/21 06:10 Labs: Laboratory Results - last 24 hr 11/03/21 19:55: WBC 19.7 H, RBC 4.55, Hgb 13.3, Hct 37.6, MCV 82.6, MCH 29.2, MCHC 35.4, RDW Std Deviation 37.0, RDW Coeff of Ed 12.2, Plt Count 441, MPV 8.4, Immature Gran % (Auto) 3.000 H, Neut % (Auto) 84.5 H, Lymph % (Auto) 7.3 L, [place] % (Auto) 4.8, Eos % (Auto) 0.1, Baso % (Auto) 0.3, Absolute Neuts (auto) 16.7 H, Absolute Lymphs (auto) 1.44, Nucleated RBC % 0 11/03/21 19:55: Sodium 115 L*, Potassium 3.0 L, Chloride 76 L, Carbon Dioxide 27.0, Anion Gap 12, BUN 8, Creatinine 0.68, Estim Creat Clear Calc 45.20, Est GFR (MDRD) Af Amer 110, Est GFR (MDRD) Non-Af 91, BUN/Creatinine Ratio 11.8, Glucose 194 H, Calcium 8.6, Total Bilirubin 1.30 H, AST 63 H, ALT 82 H, Alkaline Phosphatase 88, Troponin I High Sens 15, Total Protein 7.8, Albumin 3.0 L, Globulin 4.8 H, Albumin/Globulin Ratio 0.6 L 11/03/21 19:55: B-Natriuretic Peptide 194.6 H 11/03/21 19:55: Magnesium 2.2, Ferritin 473 H, Lactate Dehydrogenase 358 H, TSH 1.17, Free T4 1.11 11/03/21 19:55: D-Dimer Quant (PE/DVT) 0.92 H* 11/03/21 20:04: Lactic Acid 1.3 11/03/21 21:00: Urine Color Yellow, Urine Clarity Clear, Urine pH 7.0, Ur Specific [place] 1.010, Urine Protein 15 H, Urine Glucose (UA) 100 H, Urine Ketones 50 H, Urine Occult Blood Negative, Urine Nitrite Negative, Urine Bilirubin Negative, Urine Urobilinogen Normal, Ur Leukocyte Esterase Negative, Urine RBC 0 SEEN, Urine WBC 0 SEEN, Ur Squamous Epith Cells 0 SEEN, Urine Bacteria 0 SEEN, Urine Mucus 0 SEEN 11/03/21 22:00: Procalcitonin 0.05 11/03/21 22:00: COVID-19 (MYRA) Not Detected 11/03/21 22:00: Sodium 116 L*, Potassium 3.3 L, Chloride 77 L, Carbon Dioxide 27.0, Anion Gap 12, BUN 7, Creatinine 0.52 L, Estim Creat Clear Calc 45.20, Est GFR (MDRD) Af Amer 150, Est GFR (MDRD) Non-Af 124, BUN/Creatinine Ratio 13.5, Glucose 178 H, Calcium 7.9 L 11/04/21 00:27: Sodium 116 L*, Potassium 3.6, Chloride 78 L, Carbon Dioxide 27.0, Anion Gap 11, BUN 6 L, Creatinine 0.49 L, Estim Creat Clear Calc 45.20, Est GFR (MDRD) Af Amer 160, Est GFR (MDRD) Non-Af 133, BUN/Creatinine Ratio 12.2, Glucose 188 H, Calcium 7.8 L, Troponin I High Sens 22 11/04/21 02:17: Sodium 116 L*, Potassium 3.8, Chloride 80 L, Carbon Dioxide 27.0, Anion Gap 9, BUN 6 L, Creatinine 0.53 L, Estim Creat Clear Calc 45.20, Est GFR (MDRD) Af Amer 147, Est GFR (MDRD) Non-Af 121, BUN/Creatinine Ratio 11.3, Glucose 165 H, Calcium 7.7 L 11/04/21 02:17: WBC 21.2 H, RBC 4.22, Hgb 12.3, Hct 34.1 L, MCV 80.8 L, MCH 29.1, MCHC 36.1 H, RDW Std Deviation 35.0 L, RDW Coeff of Ed 11.9, Plt Count 396, MPV 8.4, Immature Gran % (Auto) 3.000 H, Neut % (Auto) 82.7 H, Lymph % (Auto) 7.2 L, [place] % (Auto) 6.8, Eos % (Auto) 0.1, Baso % (Auto) 0.2, Absolute Neuts (auto) 17.6 H, Absolute Lymphs (auto) 1.52, Nucleated RBC % 0 11/04/21 02:17: Troponin I High Sens 26 11/04/21 03:10: Urine Osmolality 418, Ur Random Sodium 126, Urine Creatinine 23.30 11/04/21 03:30: MRSA (PCR) Negative 11/04/21 06:10: Sodium 113 L*, Potassium 3.5, Chloride 79 L, Carbon Dioxide 26.0, Anion Gap 8, BUN 6 L, Creatinine 0.49 L, Estim Creat Clear Calc 45.20, Est GFR (MDRD) Af Amer 160, Est GFR (MDRD) Non-Af 132, BUN/Creatinine Ratio 12.2, Glucose 161 H, Calcium 8.1 L, Total Bilirubin 1.30 H, AST 51 H, ALT 67 H, Alkaline Phosphatase 75, Total Protein 6.7, Albumin 2.7 L, Globulin 4.0, Albumin/Globulin Ratio 0.7 L Micro: Microbiology 11/04/21 03:10 Urine, Clean Catch Legionella Antigen - Final 11/04/21 03:10 Urine, Clean Catch Streptococcus pneumoniae Antigen (M - Final 11/03/21 20:06 Nasal Secretion SARS-CoV-2 Antigen (Rapid) - Final Radiology Impression Chest X-Ray 11/03/21 20:10 IMPRESSION: 1. Subtle increased reticular opacities right lower lobe without alveolar consolidation may represent atypical infection or possibly scarring and/or atelectasis. 2. Splayed appearance of the right and left mich may be indicative of left atrial enlargement. Electronically Signed: Jesús Rodarte DO at 20:23 EST Tel , Service support , Chest CTA 11/04/21 03:23 IMPRESSION: 1. No CTA demonstrated pulmonary embolism or arterial dissection. 2. Cardiomegaly and pulmonary edema. 3. Bilateral lower lobe airspace consolidation consistent with pneumonia. Electronically Signed: Rajesh Lara MD at 5:12 EST , Service support ,
--- NOTE | 2021-11-04 12:18 | CASEMGMT ---
LUNA BAXTER [employer] CM to room to meet with patient for initial transition planning/care coordination assessment. LUNA BAXTER introduced self and role at [facility]. Pt voices understanding and consents to assessment at this time. Pt sitting up in chair in room in no distress at this time. in room visiting. Pt is A/O at this time and answers all questions appropriately. Care providers, pharmacy, and demographics verified/updated at this time. PCP: Dr Armando Martinez Specialists: Dr John-cardiology. Dr Hough-Endocrinology in [place] Preferred Pharmacy: [facility] Retail Insurance: [facility] [place] Prescription Benefit: none LNOK: , [place]. 6 children. Living Arrangements: Lives in 2-story home w/basement. 5 steps to enter. Denies difficulty w/stairs. Independent w/ADL's. Pt manages home tasks and her own meds and appts. Transportation: Hire drivers. DME: Denies using any DME and denies needs. HHC/SNF: No history of either. Denies need for HHC. Pt wishes to return home and states has no concerns with going home at time of discharge. CM to follow for any discharge planning/needs. Pt and voice no concerns/needs at this time. Advised them to ask for CM if any questions/concerns/needs arise. They voice understanding. PLAN: Home w/family support and discharge plans in place Luc HOUSTON RN, CM
[2021-11-04 12:28] LABS: Sodium Level 114 mmol/L (136-145)
--- NOTE | 2021-11-04 13:43 | NURSING ---
CHARTING BY Sanchez MCBRIDE STUDENT NURSE REVIEWED BY THIS RN. AGREES WITH CHARTING.
--- NOTE | 2021-11-04 13:51 | PN.HOSP_ITS ---
Subjective Subjective Patient seen and examined. She was walking around her room comfortably and had no complaints. Review of systems otherwise negative. She was on 3 L of oxygen. Objective Data Objective Data Vital Signs: Vital Signs Temp Pulse Resp BP Pulse Ox 97.7 F L 90 16 159/86 H 95 11/04/21 09:44 11/04/21 11:21 11/04/21 09:44 11/04/21 09:44 11/04/21 09:49 Oxygen Flow Rate (L/min) 3 Oxygen Delivery Method Nasal Cannula Weight: 157 lb 6.561 oz Body Mass Index (BMI) 27.0 Intake & Output: Intake and Output for Last 24 Hours 11/02/21 11/03/21 11/04/21 23:59 23:59 23:59 Intake Total 353.33 / 353.33 2410 / 2410 Output Total 400 / 400 Balance 353.33 / 353.33 2009 Lab / Micro Data Result Diagrams: 11/04/21 02:17 11/04/21 11:14 Labs: Laboratory Results - last 24 hr 11/03/21 19:55: WBC 19.7 H, RBC 4.55, Hgb 13.3, Hct 37.6, MCV 82.6, MCH 29.2, MCHC 35.4, RDW Std Deviation 37.0, RDW Coeff of Ed 12.2, Plt Count 441, MPV 8.4, Immature Gran % (Auto) 3.000 H, Neut % (Auto) 84.5 H, Lymph % (Auto) 7.3 L, [place] % (Auto) 4.8, Eos % (Auto) 0.1, Baso % (Auto) 0.3, Absolute Neuts (auto) 16.7 H, Absolute Lymphs (auto) 1.44, Nucleated RBC % 0 11/03/21 19:55: Sodium 115 L*, Potassium 3.0 L, Chloride 76 L, Carbon Dioxide 27.0, Anion Gap 12, BUN 8, Creatinine 0.68, Estim Creat Clear Calc 45.20, Est GFR (MDRD) Af Amer 110, Est GFR (MDRD) Non-Af 91, BUN/Creatinine Ratio 11.8, Glucose 194 H, Calcium 8.6, Total Bilirubin 1.30 H, AST 63 H, ALT 82 H, Alkaline Phosphatase 88, Troponin I High Sens 15, Total Protein 7.8, Albumin 3.0 L, Globulin 4.8 H, Albumin/Globulin Ratio 0.6 L 11/03/21 19:55: B-Natriuretic Peptide 194.6 H 11/03/21 19:55: Magnesium 2.2, Ferritin 473 H, Lactate Dehydrogenase 358 H, TSH 1.17, Free T4 1.11 11/03/21 19:55: D-Dimer Quant (PE/DVT) 0.92 H* 11/03/21 20:04: Lactic Acid 1.3 11/03/21 21:00: Urine Color Yellow, Urine Clarity Clear, Urine pH 7.0, Ur Specific [place] 1.010, Urine Protein 15 H, Urine Glucose (UA) 100 H, Urine Ketones 50 H, Urine Occult Blood Negative, Urine Nitrite Negative, Urine Bilirubin Negative, Urine Urobilinogen Normal, Ur Leukocyte Esterase Negative, Urine RBC 0 SEEN, Urine WBC 0 SEEN, Ur Squamous Epith Cells 0 SEEN, Urine Bacteria 0 SEEN, Urine Mucus 0 SEEN 11/03/21 22:00: Procalcitonin 0.05 11/03/21 22:00: COVID-19 (MYRA) Not Detected 11/03/21 22:00: Sodium 116 L*, Potassium 3.3 L, Chloride 77 L, Carbon Dioxide 27.0, Anion Gap 12, BUN 7, Creatinine 0.52 L, Estim Creat Clear Calc 45.20, Est GFR (MDRD) Af Amer 150, Est GFR (MDRD) Non-Af 124, BUN/Creatinine Ratio 13.5, Glucose 178 H, Calcium 7.9 L 11/04/21 00:27: Sodium 116 L*, Potassium 3.6, Chloride 78 L, Carbon Dioxide 27.0, Anion Gap 11, BUN 6 L, Creatinine 0.49 L, Estim Creat Clear Calc 45.20, Est GFR (MDRD) Af Amer 160, Est GFR (MDRD) Non-Af 133, BUN/Creatinine Ratio 12.2, Glucose 188 H, Calcium 7.8 L, Troponin I High Sens 22 11/04/21 02:17: Sodium 116 L*, Potassium 3.8, Chloride 80 L, Carbon Dioxide 27.0, Anion Gap 9, BUN 6 L, Creatinine 0.53 L, Estim Creat Clear Calc 45.20, Est GFR (MDRD) Af Amer 147, Est GFR (MDRD) Non-Af 121, BUN/Creatinine Ratio 11.3, Glucose 165 H, Calcium 7.7 L 11/04/21 02:17: WBC 21.2 H, RBC 4.22, Hgb 12.3, Hct 34.1 L, MCV 80.8 L, MCH 29.1, MCHC 36.1 H, RDW Std Deviation 35.0 L, RDW Coeff of Ed 11.9, Plt Count 396, MPV 8.4, Immature Gran % (Auto) 3.000 H, Neut % (Auto) 82.7 H, Lymph % (Auto) 7.2 L, [place] % (Auto) 6.8, Eos % (Auto) 0.1, Baso % (Auto) 0.2, Absolute Neuts (auto) 17.6 H, Absolute Lymphs (auto) 1.52, Nucleated RBC % 0 11/04/21 02:17: Troponin I High Sens 26 11/04/21 03:10: Urine Osmolality 418, Ur Random Sodium 126, Urine Creatinine 23.30 11/04/21 03:30: MRSA (PCR) Negative 11/04/21 06:10: Sodium 113 L*, Potassium 3.5, Chloride 79 L, Carbon Dioxide 26.0, Anion Gap 8, BUN 6 L, Creatinine 0.49 L, Estim Creat Clear Calc 45.20, Est GFR (MDRD) Af Amer 160, Est GFR (MDRD) Non-Af 132, BUN/Creatinine Ratio 12.2, Glucose 161 H, Calcium 8.1 L, Total Bilirubin 1.30 H, AST 51 H, ALT 67 H, Alkaline Phosphatase 75, Total Protein 6.7, Albumin 2.7 L, Globulin 4.0, Albumin/Globulin Ratio 0.7 L 11/04/21 11:14: Sodium 114 L* 11/04/21 12:00: Urine Potassium 48.0 Micro: Microbiology 11/04/21 03:10 Urine, Clean Catch Legionella Antigen - Final 11/04/21 03:10 Urine, Clean Catch Streptococcus pneumoniae Antigen (M - Final 11/03/21 20:06 Nasal Secretion SARS-CoV-2 Antigen (Rapid) - Final Radiography Diagnostic Testing: Radiology Impression Chest X-Ray 11/03/21 20:10 IMPRESSION: 1. Subtle increased reticular opacities right lower lobe without alveolar consolidation may represent atypical infection or possibly scarring and/or atelectasis. 2. Splayed appearance of the right and left mich may be indicative of left atrial enlargement. Electronically Signed: Jesús Rodarte DO at 20:23 EST Tel , Service support , Chest CTA 11/04/21 03:23 IMPRESSION: 1. No CTA demonstrated pulmonary embolism or arterial dissection. 2. Cardiomegaly and pulmonary edema. 3. Bilateral lower lobe airspace consolidation consistent with pneumonia. Electronically Signed: Gudelia Lara MD at 5:12 EST , Service support , Echocardiogram 11/04/21 05:44 Interpretation Summary The estimated ejection fraction is 65 %. No evidence for diastolic dysfunction. The left atrium is severely enlarged. The right atrium is moderately enlarged. Moderate (2+) mitral valve insufficiency. Moderate (2+) tricuspid valve insufficiency. Pulmonary artery systolic pressure is 60 mmHg. Mild (1+) aortic valve insufficiency. Ordering Physician: Maria Ines Masters Referring Physician: DEE MADDOX Performed By: Sylvia Brown, RDCS, RVT Physical Exam Const alert, oriented x3 and no apparent distress Exam Limitations: no limitations HEENT head/scalp atraumatic and moist oral mucous membranes Head and Scalp: normocephalic Eyes PERRL, EOMs intact bilaterally and conjunctivae normal Neck no lymphadenopathy, supple and no JVD Resp Resp Narrative: diminished breath sounds bibasally, no wheezes or crackles. On 3L of oxygen by nasal canula Cardio regular rate, regular rhythm, S1 normal heart sound, S2 normal heart sound and no murmurs GI normal to inspection, nondistended, normoactive bowel sounds, soft to palpation, non-tender and non-distended Extremity normal to inspection, full ROM and no clubbing, cyanosis or edema Peripheral Pulses: Yes pulses 2+ throughout Skin no rashes or lesions noted Neuro oriented x3, CN's II-XII intact bilaterally and moves all extremities Sensorium / Orientation: awake and alert Psych affect normal Assessment & Plan Assessment/Plan (1) Hypoxia: (2) Pneumonia: PLAN: #Acute hypoxic respiratory failure due to community acquired pneumonia * on 3L of oxygen. * on IV levaquin * titrate oxygen to maintain sats >90% * breathing treatment with bronchodilators. * blood cultures pending * covid test negative. * #Paroxysmal afib * had afib with RVR on admission. That has now resolved. Troponins x 3 were negative. * on eliquis. On PO cardizem * 2D echo: severely enlarged left atriuim, with EF of 65%, and no evidence of di astolic dysfunction; no regional wall motion abnormalities noted. PA pressure is 60mmhg. * #Hyponatremia: Sodium is 113 today. Was 115 on admission. Nephrology consulted. #Hypokalemia: Potassium was 3 on admission. This has resolved. K is now 3.5. Will monitor. will keep K >4 and Mg >2. #History of multinodular goiter with hypothyroidism: On thyroid supplementation #Hypertension: On Cardizem. IV hydralazine as needed #DVT prophylaxis: On Eliquis so DVT prophylaxis not indicated. Charges/Coding Visit Charges Inpatient E&M: 18533 Subs Hosp L2
[2021-11-04] MEDS: Furosemide 20 MG Tablet PO (14:13)
--- NOTE | 2021-11-04 15:35 | CHAPLAIN ---
Type of Pastoral Visit _x__ Initial Visit ___ Follow-up Visit ___ On-call Visit ___ General Patient Visit ___ Spiritual Assessment ___ Family Conference ___ Bereavement ___ Rapid Response ___ Code Blue ___ Other (describe below) Pastoral Care Referral From _x__ Patient ___ Family ___ Nurse ___ Physician ___ Compensation Programs Manager ___ Catering Service Manager ___ Other (describe below) Sacrament/Intervention _x__ Active listening ___ Anointing ___ Restorationist ___ Bereavement ___ Communion ___ Jany exploration ___ ___ Life review _x__ Prayer ___ Reconciliation ___ Sacrament of Sick _x__ Supportive presence ___ Wedding ___ Other (describe below) Pastoral Comments patient and spouse are in the room; pt states that she may go home tomorrow; spouse states that pt is much better than last night; prayer is welcomed; no other needs
--- NOTE | 2021-11-04 16:01 | NURSING ---
Report given to Pastor Peña RN
[2021-11-04 18:37] LABS: Sodium Level 121 mmol/L (136-145)
[2021-11-04] MEDS: levoFLOXacin IV 750 MG/150 ML BAG 100 MG IV (20:03)
[2021-11-04 23:10] LABS: Sodium Level 125 mmol/L (136-145)
[2021-11-05] VITALS (9 sets, daily range): BP systolic 113–132; BP diastolic 60–93; PULSE 86–108; RESP 16–18; TEMP 36.4–36.7; O2SAT 90–97
[2021-11-05 04:59] LABS: Absolute Neutrophil Count 9.6 X10^3/uL (2.0-7.7); Basophil# 0.03 X10^3/uL; Basophil% 0.2 % (0-1); Eosinophil# 0.02 X10^3/uL; Eosinophils% 0.2 % (0-5); Hematocrit 34.8 % (37-47); Lymphocyte % 10.3 % (19-41); Mean Corp Hgb Conc 34.5 g/dL (32-36); Mean Corpuscular Hgb 28.5 pg (27.0-32.0); Mean Corpuscular Volume 82.7 fL (81-99); Mean Platelet Vol. 8.6 fl (6.2-12.0); Monocyte# 1.37 X10^3/uL; Monocyte% 10.9 % (0-10); NRBC Flagged by Analyzer 0 % (0-5); Neutrophil # 9.56 X10^3/uL (2.7-7.7); Neutrophil % 76.1 % (47-70); Platelet Count 454 K/mm3 (150-450); RBC Distribution Width CV 12.6 % (11.6-14.6); RBC Distribution Width SD 37.8 fl (35.1-43.9); Red Blood Count 4.21 M/mm3 (4.2-5.4); White Blood Count 12.6 K/mm3 (4.4-11.0)
[2021-11-05] MEDS: Thyroid 15 MG Tablet 30 MG PO (05:17)
[2021-11-05 06:02] LABS: Anion Gap 6 (5-15); BUN 11 mg/dL (7-18); Calcium,Total 8.3 mg/dL (8.5-10.1); Chloride 90 mmol/L (98-107); Creatinine, Serum 0.73 mg/dL (0.55-1.02); EST Glomerular Filtration Rate 83 mL/min (>60); Est Glom Filt Rate - Afr Amer 101 mL/min (>60); Glucose 128 mg/dL (74-106); Potassium 3.5 mmol/L (3.5-5.1); Sodium Level 128 mmol/L (136-145)
[2021-11-05] MEDS: Budesonide Respules 0.5 MG/2 ML AMPUL.NEB. INHALATION (07:04)
[2021-11-05] MEDS: APIXABAN 5 MG TABLET PO (08:15)
[2021-11-05] MEDS: dilTIAZem CD 120 MG Capsule PO (08:15)
[2021-11-05 08:17] LABS: Sodium Level 128 mmol/L (136-145)
[2021-11-05] MEDS: Desmopressin Acetate 4 MCG/ML Ampul 2 MCG IV (10:50)
[2021-11-05 10:51] LABS: Sodium Level 128 mmol/L (136-145)
--- NOTE | 2021-11-05 11:25 | PN.RENAL_ITS ---
Subjective Subjective Following for Hyponatremia Patient denies any nausea, vomiting, diarrhea. States she has no problems following fluid restriction. Denies headaches, vision changes. Denies any complaints at all today Objective Data Objective Data Vital Signs: Vital Signs Temp Pulse Resp BP Pulse Ox 97.6 F L 89 18 128/81 H 92 11/05/21 08:06 11/05/21 08:06 11/05/21 08:06 11/05/21 08:06 11/05/21 08:06 Oxygen Flow Rate (L/min) 2 Oxygen Delivery Method Room Air Weight: 77.5 kg Body Mass Index (BMI) 27.0 Intake & Output: Intake and Output for Last 24 Hours 11/03/21 11/04/21 11/05/21 23:59 23:59 23:59 Intake Total 353.33 / 353.33 3155 / 3155 1060 / 1060 Output Total 1600 / 1600 1600 / 1600 Balance 353.33 / 353.33 1555 / 1555 -540 / -540 Lab / Micro Data Result Diagrams: 11/05/21 04:15 11/05/21 10:10 Labs: Laboratory Results - last 24 hr 11/04/21 11:14: Sodium 114 L* 11/04/21 12:00: Urine Potassium 48.0 11/04/21 17:05: Sodium 121 L 11/04/21 22:09: Sodium 125 L 11/05/21 04:15: Sodium 128 L, Potassium 3.5, Chloride 90 L, Carbon Dioxide 32.0, Anion Gap 6, BUN 11, Creatinine 0.73, Estim Creat Clear Calc 45.20, Est GFR (MDRD) Af Amer 101, Est GFR (MDRD) Non-Af 83, BUN/Creatinine Ratio 15.0, Glucose 128 H, Calcium 8.3 L 11/05/21 04:15: WBC 12.6 H, RBC 4.21, Hgb 12.0, Hct 34.8 L, MCV 82.7, MCH 28.5, MCHC 34.5, RDW Std Deviation 37.8, RDW Coeff of Ed 12.6, Plt Count 454 H, MPV 8.6, Immature Gran % (Auto) 2.300 H, Neut % (Auto) 76.1 H, Lymph % (Auto) 10.3 L , [place] % (Auto) 10.9 H, Eos % (Auto) 0.2, Baso % (Auto) 0.2, Absolute Neuts (auto) 9.6 H, Absolute Lymphs (auto) 1.30, Nucleated RBC % 0 11/05/21 07:49: Sodium 128 L 11/05/21 10:10: Sodium 128 L Micro: Microbiology 11/04/21 21:35 Sputum, Expectorated/Coughed Gram Stain - Final 11/04/21 03:10 Urine, Clean Catch Legionella Antigen - Final 11/04/21 03:10 Urine, Clean Catch Streptococcus pneumoniae Antigen (M - Final 11/03/21 20:06 Nasal Secretion SARS-CoV-2 Antigen (Rapid) - Final Radiography Diagnostic Testing: Radiology Impression Echocardiogram 11/04/21 05:44 Interpretation Summary The estimated ejection fraction is 65 %. No evidence for diastolic dysfunction. The left atrium is severely enlarged. The right atrium is moderately enlarged. Moderate (2+) mitral valve insufficiency. Moderate (2+) tricuspid valve insufficiency. Pulmonary artery systolic pressure is 60 mmHg. Mild (1+) aortic valve insufficiency. Ordering Physician: Maria Ines Masters Referring Physician: DEE MADDOX Performed By: Sylvia Brown, ROSI, RVT Physical Exam Narrative General: Alert and oriented x3, NAD. HEENT: Normocephalic, atraumatic, PERRLA, EOMI, mucous membranes moist, there is no mucosal erythema. Hearing is intact. Heart: Normal S1, S2. No rubs, murmurs or gallops. Lungs: CTAB. Abdomen: Normal bowel sounds, soft, nontender, no guarding or rebound. Extremity: No clubbing or cyanosis. There is no edema of the lower extremities. Skin: Warm and dry. No rash. Psychiatric: Mood and affect are normal. Assessment & Plan Assessment/Plan (1) Hyponatremia: PLAN: - The patient has severe hyponatremia. Sodium 115 on admission, dropped to 113 on 11/04/2021. Sodium rylie 113. -No known history of hyponatremia, May 2021 sodium 138. Patient does report she drinks 3 quarts of water a day. - There are no worrisome symptoms of hyponatremia such as headache, nausea, or ataxia. She is not confused. - The patient appears to be euvolemic on exam. 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 -Sodium increased to 128 and patient was started on D5W, ideally sodium goal 123 today. Last sodium at 10 AM this morning 128, therefore patient was given a dose of DDAVP. Continue sodium checks every 6 hours. Continue D5W as ordered. -Encouraged the patient to increase protein/solute intake. This will help the kidney obligate water loss. -Continue to limit water intake to 1.5 L/day. - urine sodium 126, urine potassium 48. No need for lasix today. (2) Hypertension: PLAN: - BP is acceptable. -The patient was not on hydrochlorothiazide or other thiazide diuretic prior to admission. (3) Hypothyroidism: QUALIFIERS: Hypothyroidism type: unspecified Qualified Code(s): E03.9 - Hypothyroidism, unspecified PLAN: - TSH on 11/03/2021 was normal. Continue current dose of levothyroxine. -Low suspicion that hypothyroidism is contributing to hyponatremia since it is well treated. (4) Pneumonia: PLAN: - Antimicrobial treatment as per hospital medicine service.
--- NOTE | 2021-11-05 12:20 | PN.HOSP_ITS ---
Subjective Subjective Patient seen and examined. She feels very well today. She is on room air. She has no complaints and review of systems otherwise negative. Sodium has increased to 128 today. Nephrology on board. Patient started on D5 water and also received DDAVP. Objective Data Objective Data Vital Signs: Vital Signs Temp Pulse Resp BP Pulse Ox 97.6 F L 89 18 128/81 H 92 11/05/21 08:06 11/05/21 08:06 11/05/21 08:06 11/05/21 08:06 11/05/21 08:06 Oxygen Flow Rate (L/min) 2 Oxygen Delivery Method Room Air Weight: 170 lb 13.732 oz Body Mass Index (BMI) 27.0 Intake & Output: Intake and Output for Last 24 Hours 11/03/21 11/04/21 11/05/21 23:59 23:59 23:59 Intake Total 353.33 / 353.33 3155 / 3155 1060 / 1060 Output Total 1600 / 1600 1600 / 1600 Balance 353.33 / 353.33 1555 / 1555 -540 / -540 Lab / Micro Data Result Diagrams: 11/05/21 04:15 11/05/21 10:10 Labs: Laboratory Results - last 24 hr 11/04/21 11:14: Sodium 114 L* 11/04/21 12:00: Urine Potassium 48.0 11/04/21 17:05: Sodium 121 L 11/04/21 22:09: Sodium 125 L 11/05/21 04:15: Sodium 128 L, Potassium 3.5, Chloride 90 L, Carbon Dioxide 32.0, Anion Gap 6, BUN 11, Creatinine 0.73, Estim Creat Clear Calc 45.20, Est GFR (MDRD) Af Amer 101, Est GFR (MDRD) Non-Af 83, BUN/Creatinine Ratio 15.0, Glucose 128 H, Calcium 8.3 L 11/05/21 04:15: WBC 12.6 H, RBC 4.21, Hgb 12.0, Hct 34.8 L, MCV 82.7, MCH 28.5, MCHC 34.5, RDW Std Deviation 37.8, RDW Coeff of Ed 12.6, Plt Count 454 H, MPV 8.6, Immature Gran % (Auto) 2.300 H, Neut % (Auto) 76.1 H, Lymph % (Auto) 10.3 L , [place] % (Auto) 10.9 H, Eos % (Auto) 0.2, Baso % (Auto) 0.2, Absolute Neuts (auto) 9.6 H, Absolute Lymphs (auto) 1.30, Nucleated RBC % 0 11/05/21 07:49: Sodium 128 L 11/05/21 10:10: Sodium 128 L Micro: Microbiology 11/04/21 21:35 Sputum, Expectorated/Coughed Gram Stain - Final 11/04/21 03:10 Urine, Clean Catch Legionella Antigen - Final 11/04/21 03:10 Urine, Clean Catch Streptococcus pneumoniae Antigen (M - Final 11/03/21 20:06 Nasal Secretion SARS-CoV-2 Antigen (Rapid) - Final Physical Exam Const alert, oriented x3 and no apparent distress Exam Limitations: no limitations HEENT head/scalp atraumatic and moist oral mucous membranes Head and Scalp: normocephalic Eyes PERRL, EOMs intact bilaterally and conjunctivae normal Neck no lymphadenopathy, supple and no JVD Resp Resp Narrative: diminished breath sounds bibasally, no wheezes or crackles. On room air Cardio regular rate, regular rhythm, S1 normal heart sound, S2 normal heart sound and no murmurs GI normal to inspection, nondistended, normoactive bowel sounds, soft to palpation, non-tender and non-distended Extremity normal to inspection, full ROM and no clubbing, cyanosis or edema Peripheral Pulses: Yes pulses 2+ throughout Skin no rashes or lesions noted Neuro oriented x3, CN's II-XII intact bilaterally and moves all extremities Sensorium / Orientation: awake and alert Psych affect normal Assessment & Plan Assessment/Plan (1) Hypoxia: (2) Pneumonia: PLAN: #Acute hypoxic respiratory failure due to community acquired pneumonia * now on room air. * on IV levaquin * titrate oxygen to maintain sats >90% * breathing treatment with bronchodilators. * blood cultures pending * covid test negative. * #Paroxysmal afib * had afib with RVR on admission. That has now resolved. Troponins x 3 were negative. * on eliquis. On PO cardizem * 2D echo: severely enlarged left atrium, with EF of 65%, and no evidence of diastolic dysfunction; no regional wall motion abnormalities noted. PA pressure is 60mmhg. * #Hyponatremia: * Sodium is up to 128 today. Was 115 on admission. * Nephrology on board. started on 5% DW and also received DDAVP today due to overcorrection. * management as per nephrology #Hypokalemia: resolved. #History of multinodular goiter with hypothyroidism: On thyroid supplementation #Hypertension: On Cardizem. IV hydralazine as needed #DVT prophylaxis: On Eliquis so DVT prophylaxis not indicated. Disposition: for dc home likely tomorrow. Charges/Coding Visit Charges Inpatient E&M: 23282 Subs Hosp L2
[2021-11-05 13:52] LABS: Sodium Level 127 mmol/L (136-145)
[2021-11-05] MEDS: 0.9% Saline Lock 10 ML Syringe IV ×2 (14:23→22:02)
--- NOTE | 2021-11-05 15:02 | CASEMGMT ---
Pt does not qualify for home oxygen. Irlanda CARRASCO CM
[2021-11-05 17:58] LABS: Sodium Level 124 mmol/L (136-145)
[2021-11-05 21:10] LABS: Sodium Level 124 mmol/L (136-145)
[2021-11-05] MEDS: Ondansetron 4 MG/2 ML Vial IV (22:02)
[2021-11-05] MEDS: levoFLOXacin IV 750 MG/150 ML BAG 100 MG IV (22:04)
[2021-11-06] VITALS (12 sets, daily range): BP systolic 125–161; BP diastolic 74–93; PULSE 75–106; RESP 16–20; TEMP 36.5–36.7; O2SAT 91–98
[2021-11-06 05:08] LABS: Absolute Lymphocyte Count 1.56 X10^3/uL (0.83-4.51); Absolute Neutrophil Count 10.8 X10^3/uL (2.0-7.7); Basophil# 0.03 X10^3/uL; Basophil% 0.2 % (0-1); Eosinophil# 0.08 X10^3/uL; Eosinophils% 0.6 % (0-5); Hematocrit 32.9 % (37-47); Hemoglobin 11.6 g/dL (12.0-15.0); Lymphocyte # 1.56 X10^3/ul (0.83-4.51); Lymphocyte % 11.4 % (19-41); Mean Corp Hgb Conc 35.3 g/dL (32-36); Mean Corpuscular Hgb 29.4 pg (27.0-32.0); Mean Corpuscular Volume 83.5 fL (81-99); Mean Platelet Vol. 8.3 fl (6.2-12.0); Monocyte# 1.05 X10^3/uL; Monocyte% 7.6 % (0-10); NRBC Flagged by Analyzer 0 % (0-5); Neutrophil # 10.76 X10^3/uL (2.7-7.7); Neutrophil % 78.4 % (47-70); Platelet Count 378 K/mm3 (150-450); RBC Distribution Width CV 12.8 % (11.6-14.6); RBC Distribution Width SD 38.8 fl (35.1-43.9); Red Blood Count 3.94 M/mm3 (4.2-5.4); White Blood Count 13.7 K/mm3 (4.4-11.0)
[2021-11-06] MEDS: Thyroid 15 MG Tablet 30 MG PO (05:24)
[2021-11-06 05:26] LABS: Anion Gap 5 (5-15); BUN 9 mg/dL (7-18); BUN/Creat Ratio 18.4 RATIO (10-20); Calcium,Total 8.1 mg/dL (8.5-10.1); Chloride 88 mmol/L (98-107); Creatinine, Serum 0.49 mg/dL (0.55-1.02); EST Glomerular Filtration Rate 133 mL/min (>60); Est Glom Filt Rate - Afr Amer 161 mL/min (>60); Glucose 115 mg/dL (74-106); Potassium 3.4 mmol/L (3.5-5.1); Sodium Level 122 mmol/L (136-145)
--- NOTE | 2021-11-06 06:48 | NURSING ---
RN called Dr French at this time to give results of sodium, no answer at this time.
[2021-11-06] MEDS: Budesonide Respules 0.5 MG/2 ML AMPUL.NEB. INHALATION ×2 (07:36→19:51)
[2021-11-06] MEDS: Potassium Chloride Oral Tablet 20 MEQ 40 MEQ PO (08:44)
[2021-11-06] MEDS: 0.9% Saline Lock 10 ML Syringe IV (08:45)
[2021-11-06] MEDS: dilTIAZem CD 120 MG Capsule PO (08:53)
[2021-11-06] MEDS: APIXABAN 5 MG TABLET PO ×2 (08:54→21:17)
--- NOTE | 2021-11-06 09:15 | PN.RENAL_ITS ---
Subjective Subjective Following for hyponatremia. foggy The patient still feels foggy, like spiderweb in my brain. She denies headache, nausea, or ataxia. The patient was nauseated earlier this morning, however. Objective Data Objective Data Vital Signs: Vital Signs Temp Pulse Resp BP Pulse Ox 97.8 F 106 H 16 161/80 H 98 11/06/21 08:45 11/06/21 08:57 11/06/21 08:57 11/06/21 08:45 11/06/21 08:57 Oxygen Flow Rate (L/min) 2 Oxygen Delivery Method Room Air Weight: 79 kg Body Mass Index (BMI) 27.0 Intake & Output: Intake and Output for Last 24 Hours 11/04/21 11/05/21 11/06/21 23:59 23:59 23:59 Intake Total 3155 / 3155 3690 / 4090 600 / 600 Output Total 1600 / 1600 2400 / 2600 200 / 200 Balance 1555 / 1555 1290 / 1490 400 / 400 Lab / Micro Data Result Diagrams: 11/06/21 05:03 11/06/21 05:03 Labs: Laboratory Results - last 24 hr 11/05/21 10:10: Sodium 128 L 11/05/21 12:59: Sodium 127 L 11/05/21 17:05: Sodium 124 L 11/05/21 20:50: Sodium 124 L 11/06/21 05:03: Sodium 122 L, Potassium 3.4 L, Chloride 88 L, Carbon Dioxide 29.0, Anion Gap 5, BUN 9, Creatinine 0.49 L, Estim Creat Clear Calc 45.20, Est GFR (MDRD) Af Amer 161, Est GFR (MDRD) Non-Af 133, BUN/Creatinine Ratio 18.4, Glucose 115 H, Calcium 8.1 L 11/06/21 05:03: WBC 13.7 H, RBC 3.94 L, Hgb 11.6 L, Hct 32.9 L, MCV 83.5, MCH 29.4, MCHC 35.3, RDW Std Deviation 38.8, RDW Coeff of Ed 12.8, Plt Count 378, MPV 8.3, Immature Gran % (Auto) 1.800 H, Neut % (Auto) 78.4 H, Lymph % (Auto) 11.4 L, [place] % (Auto) 7.6, Eos % (Auto) 0.6, Baso % (Auto) 0.2, Absolute Neuts (auto) 10.8 H, Absolute Lymphs (auto) 1.56, Nucleated RBC % 0 Micro: Microbiology 11/03/21 21:00 Urine, Clean Catch Urine Culture - Final Mixed Gram Positive Organisms 11/04/21 21:35 Sputum, Expectorated/Coughed Gram Stain - Final 11/04/21 03:10 Urine, Clean Catch Legionella Antigen - Final 11/04/21 03:10 Urine, Clean Catch Streptococcus pneumoniae Antigen (M - Final 11/03/21 20:06 Nasal Secretion SARS-CoV-2 Antigen (Rapid) - Final Physical Exam Narrative General: Alert and oriented x3, NAD. Heart: Normal S1, S2. No rubs, murmurs or gallops. Lungs: CTAB. Abdomen: Normal bowel sounds, soft, nontender, no guarding or rebound. Extremity: No clubbing or cyanosis. There is no edema of the lower extremities. Skin: Warm and dry. No rash. Psychiatric: Mood and affect are normal. Assessment & Plan Assessment/Plan (1) Hyponatremia: PLAN: - The patient has severe hyponatremia. Sodium 115 on admission, dropped to 113 on 11/04/2021. -No known history of hyponatremia, May 2021 sodium 138. Patient does report she drinks 3 quarts of water a day. -Although there is no worrisome symptom of hyponatremia currently, the patient does not feel back to her usual self yet. - The patient appears to be euvolemic on exam. 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 -Serum sodium increased from 113 mmol/L to 128 mmol/L between 11/04/2021 to 11/05/2021 (within 24 h). This was too rapid of a rise which put patient at risk for osmotic demyelination. Therefore, the patient was started on D5W and rece ived 1 dose of DDAVP. -D5W was stopped yesterday evening, and serum sodium is 122 mmol/L this morning. We will let the sodium level rise about 6-8 mmol/L within the next 24 hours. -Encouraged the patient to increase protein/solute intake. This will help the kidney obligate water loss. -Continue to limit water intake to 1.2 L/day. -If serum sodium is 128 to 131 mmol/L by tomorrow morning, the patient can be discharged from my standpoint. (2) Hypertension: PLAN: - BP is higher this morning than usual. Blood pressure has been acceptable up until this morning. There is no urgency to change medication, and we will watch BP for now. She is on diltiazem only. -The patient was not on hydrochlorothiazide or other thiazide diuretic prior to admission. (3) Hypothyroidism: QUALIFIERS: Hypothyroidism type: unspecified Qualified Code(s): E03.9 - Hypothyroidism, unspecified PLAN: - TSH on 11/03/2021 was normal. Continue current dose of levothyroxine. -Low suspicion that hypothyroidism is contributing to hyponatremia since it is well treated. (4) Pneumonia: PLAN: - Antimicrobial treatment as per hospital medicine service.
[2021-11-06 10:08] LABS: Sodium Level 123 mmol/L (136-145)
--- NOTE | 2021-11-06 12:51 | PN.HOSP_ITS ---
Subjective Subjective Patient seen and examined. She had no complaints this morning. She remains on room air. Her sodium today is down to 122. Objective Data Objective Data Vital Signs: Vital Signs Temp Pulse Resp BP Pulse Ox 97.8 F 106 H 16 161/80 H 98 11/06/21 08:45 11/06/21 08:57 11/06/21 08:57 11/06/21 08:45 11/06/21 08:57 Oxygen Flow Rate (L/min) 2 Oxygen Delivery Method Room Air Weight: 174 lb 2.643 oz Body Mass Index (BMI) 27.0 Intake & Output: Intake and Output for Last 24 Hours 11/04/21 11/05/21 11/06/21 23:59 23:59 23:59 Intake Total 3155 / 3155 3690 / 4090 960 / 960 Output Total 1600 / 1600 2400 / 2600 200 / 200 Balance 1555 / 1555 1290 / 1490 760 / 760 Lab / Micro Data Result Diagrams: 11/06/21 05:03 11/06/21 09:40 Labs: Laboratory Results - last 24 hr 11/05/21 12:59: Sodium 127 L 11/05/21 17:05: Sodium 124 L 11/05/21 20:50: Sodium 124 L 11/06/21 05:03: Sodium 122 L, Potassium 3.4 L, Chloride 88 L, Carbon Dioxide 29.0, Anion Gap 5, BUN 9, Creatinine 0.49 L, Estim Creat Clear Calc 45.20, Est GFR (MDRD) Af Amer 161, Est GFR (MDRD) Non-Af 133, BUN/Creatinine Ratio 18.4, Glucose 115 H, Calcium 8.1 L 11/06/21 05:03: WBC 13.7 H, RBC 3.94 L, Hgb 11.6 L, Hct 32.9 L, MCV 83.5, MCH 29.4, MCHC 35.3, RDW Std Deviation 38.8, RDW Coeff of Ed 12.8, Plt Count 378, MPV 8.3, Immature Gran % (Auto) 1.800 H, Neut % (Auto) 78.4 H, Lymph % (Auto) 11.4 L, [place] % (Auto) 7.6, Eos % (Auto) 0.6, Baso % (Auto) 0.2, Absolute Neuts (auto) 10.8 H, Absolute Lymphs (auto) 1.56, Nucleated RBC % 0 11/06/21 09:40: Sodium 123 L Micro: Microbiology 11/03/21 20:38 Blood Culture (Wb) - Anticubital Right Blood Culture - Preliminary No growth in 48 hours. 11/03/21 20:04 Blood Culture (Wb) - Anticubital Right Blood Culture - Preliminary No growth in 48 hours. 11/04/21 21:35 Sputum, Expectorated/Coughed Gram Stain - Final 11/04/21 21:35 Sputum, Expectorated/Coughed Respiratory Culture - Preliminary Appears to be normal respiratory aissatou. Further studies to follow. 11/03/21 21:00 Urine, Clean Catch Urine Culture - Final Mixed Gram Positive Organisms 11/04/21 03:10 Urine, Clean Catch Legionella Antigen - Final 11/04/21 03:10 Urine, Clean Catch Streptococcus pneumoniae Antigen (M - Final 11/03/21 20:06 Nasal Secretion SARS-CoV-2 Antigen (Rapid) - Final Physical Exam Const alert, oriented x3 and no apparent distress Exam Limitations: no limitations HEENT head/scalp atraumatic and moist oral mucous membranes Head and Scalp: normocephalic Eyes PERRL, EOMs intact bilaterally and conjunctivae normal Neck no lymphadenopathy, supple and no JVD Resp Resp Narrative: diminished breath sounds bibasally, no wheezes or crackles. On room air Cardio regular rate, regular rhythm, S1 normal heart sound, S2 normal heart sound and no murmurs GI normal to inspection, nondistended, normoactive bowel sounds, soft to palpation, non-tender and non-distended Extremity normal to inspection, full ROM and no clubbing, cyanosis or edema Peripheral Pulses: Yes pulses 2+ throughout Skin no rashes or lesions noted Neuro oriented x3, CN's II-XII intact bilaterally and moves all extremities Sensorium / Orientation: awake and alert Psych affect normal Assessment & Plan Assessment/Plan (1) Hypoxia: (2) Pneumonia: PLAN: #Acute hypoxic respiratory failure due to community acquired pneumonia * now on room air. * on IV levaquin * titrate oxygen to maintain sats >90% * breathing treatment with bronchodilators. * blood cultures pending * covid test negative. * #Paroxysmal afib * had afib with RVR on admission. That has now resolved. Troponins x 3 were negative. * on eliquis. On PO cardizem * 2D echo: severely enlarged left atrium, with EF of 65%, and no evidence of diastolic dysfunction; no regional wall motion abnormalities noted. PA pressure is 60mmhg. * #Hyponatremia: * sodium is down to 122 today. Received D5W and DDAVP yesterday due to overcorrection of her sodium * per nephro, to keep one more day. target sodium is between 125-130. * #Hypokalemia:potassium is 3.4. Will replace and trend. #History of multinodular goiter with hypothyroidism: On thyroid supplementation #Hypertension: On Cardizem. IV hydralazine as needed #DVT prophylaxis: On Eliquis so DVT prophylaxis not indicated. Disposition: for dc home likely tomorrow. Charges/Coding Visit Charges Inpatient E&M: 26710 Subs Hosp L2
[2021-11-06 16:49] LABS: Sodium Level 126 mmol/L (136-145)
[2021-11-06] MEDS: levoFLOXacin IV 750 MG/150 ML BAG 100 MG IV (21:29)
[2021-11-06 22:05] LABS: Sodium Level 130 mmol/L (136-145)
[2021-11-07] VITALS (7 sets, daily range): BP systolic 123–136; BP diastolic 72–80; PULSE 78–101; RESP 16–18; TEMP 36.8; O2SAT 95–97
[2021-11-07 05:24] LABS: Absolute Lymphocyte Count 1.72 X10^3/uL (0.83-4.51); Absolute Neutrophil Count 6.3 X10^3/uL (2.0-7.7); Basophil# 0.05 X10^3/uL; Basophil% 0.5 % (0-1); Eosinophils% 1.1 % (0-5); Hematocrit 34.5 % (37-47); Hemoglobin 11.8 g/dL (12.0-15.0); Lymphocyte # 1.72 X10^3/ul (0.83-4.51); Lymphocyte % 18.3 % (19-41); Mean Corp Hgb Conc 34.2 g/dL (32-36); Mean Corpuscular Hgb 29.1 pg (27.0-32.0); Monocyte# 0.97 X10^3/uL; Monocyte% 10.3 % (0-10); NRBC Flagged by Analyzer 0 % (0-5); Neutrophil # 6.33 X10^3/uL (2.7-7.7); Neutrophil % 67.1 % (47-70); Platelet Count 411 K/mm3 (150-450); RBC Distribution Width CV 13.2 % (11.6-14.6); RBC Distribution Width SD 40.3 fl (35.1-43.9); Red Blood Count 4.06 M/mm3 (4.2-5.4); White Blood Count 9.4 K/mm3 (4.4-11.0)
[2021-11-07 05:38] LABS: Albumin, Serum 2.5 g/dL (3.2-5.0); Anion Gap 7 (5-15); BUN 15 mg/dL (7-18); BUN/Creat Ratio 21.4 RATIO (10-20); Calcium,Total 8.4 mg/dL (8.5-10.1); Chloride 97 mmol/L (98-107); EST Glomerular Filtration Rate 88 mL/min (>60); Est Glom Filt Rate - Afr Amer 106 mL/min (>60); Glucose 114 mg/dL (74-106); Phosphorus 3.5 mg/dL (2.5-4.9); Potassium 4.2 mmol/L (3.5-5.1); Sodium Level 134 mmol/L (136-145)
[2021-11-07] MEDS: Thyroid 15 MG Tablet 30 MG PO (05:50)
[2021-11-07] MEDS: dilTIAZem CD 120 MG Capsule PO (10:08)
[2021-11-07] MEDS: APIXABAN 5 MG TABLET PO (10:08)
--- NOTE | 2021-11-07 10:18 | PN.RENAL_ITS ---
Subjective Subjective Following for hyponatremia. The patient denies headache, nausea, confusion, or ataxia. Objective Data Objective Data Vital Signs: Vital Signs Temp Pulse Resp BP Pulse Ox 98.2 F 101 H 18 128/80 H 96 11/07/21 08:49 11/07/21 08:49 11/07/21 08:49 11/07/21 08:49 11/07/21 08:49 Oxygen Flow Rate (L/min) 2 Oxygen Delivery Method Room Air Weight: 78.1 kg Body Mass Index (BMI) 27.0 Intake & Output: Intake and Output for Last 24 Hours 11/05/21 11/06/21 11/07/21 23:59 23:59 23:59 Intake Total 3690 / 4090 1450 / 1450 50 / 50 Output Total 2400 / 2600 1650 / 1650 900 / 900 Balance 1290 / 1490 -200 / -200 -850 / -850 Lab / Micro Data Result Diagrams: 11/07/21 05:15 11/07/21 05:15 Labs: Laboratory Results - last 24 hr 11/06/21 16:10: Sodium 126 L 11/06/21 21:45: Sodium 130 L 11/07/21 05:15: Sodium 134 L, Potassium 4.2, Chloride 97 L, Carbon Dioxide 30.0, Anion Gap 7, BUN 15, Creatinine 0.70, Estim Creat Clear Calc 45.20, Est GFR (MDRD) Af Amer 106, Est GFR (MDRD) Non-Af 88, BUN/Creatinine Ratio 21.4 H, Glucose 114 H, Calcium 8.4 L, Phosphorus 3.5, Albumin 2.5 L 11/07/21 05:15: WBC 9.4, RBC 4.06 L, Hgb 11.8 L, Hct 34.5 L, MCV 85.0, MCH 29.1, MCHC 34.2, RDW Std Deviation 40.3, RDW Coeff of Ed 13.2, Plt Count 411, MPV 8.0, Immature Gran % (Auto) 2.700 H, Neut % (Auto) 67.1, Lymph % (Auto) 18.3 L, [place] % (Auto) 10.3 H, Eos % (Auto) 1.1, Baso % (Auto) 0.5, Absolute Neuts (auto) 6.3, Absolute Lymphs (auto) 1.72, Nucleated RBC % 0 Micro: Microbiology 11/04/21 21:35 Sputum, Expectorated/Coughed Gram Stain - Final 11/04/21 21:35 Sputum, Expectorated/Coughed Respiratory Culture - Final Presumptive C albicans 11/03/21 20:38 Blood Culture (Wb) - Anticubital Right Blood Culture - Preliminary No growth in 48 hours. 11/03/21 20:04 Blood Culture (Wb) - Anticubital Right Blood Culture - Preliminary No growth in 48 hours. 11/03/21 21:00 Urine, Clean Catch Urine Culture - Final Mixed Gram Positive Organisms 11/04/21 03:10 Urine, Clean Catch Legionella Antigen - Final 11/04/21 03:10 Urine, Clean Catch Streptococcus pneumoniae Antigen (M - Final 11/03/21 20:06 Nasal Secretion SARS-CoV-2 Antigen (Rapid) - Final Physical Exam Narrative General: Alert and oriented x3, NAD. Heart: Normal S1, S2. No rubs, murmurs or gallops. Lungs: CTAB. Abdomen: Normal bowel sounds, soft, nontender, no guarding or rebound. Extremity: No clubbing or cyanosis. There is no edema of the lower extremities. Psychiatric: Mood and affect are normal. Assessment & Plan Assessment/Plan (1) Hyponatremia: PLAN: - The patient presented with severe hyponatremia. Sodium 115 on admission, dropped to 113 on 11/04/2021. -No known history of hyponatremia, May 2021 sodium was 138. Patient does report she drinks 3 quarts of water a day. - The patient appears to be euvolemic on exam. 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 -Serum sodium increased from 113 mmol/L to 128 mmol/L between 11/04/2021 to 11/05/2021 (within 24 h). This was too rapid of a rise which put patient at risk for osmotic demyelination. Therefore, the patient was started on D5W and received 1 dose of DDAVP on 11/05/2021. -D5W was stopped evening of 11/05/2021. -Serum sodium has been rising at a safe rate in the last 24 hours. Serum sodium is 134 mmol/L today. The patient is asymptomatic. -Encouraged the patient to increase protein/solute intake. This will help the kidney obligate water loss. -Okay from my standpoint to discharge the patient today. -Continue to limit water intake to 1.5 L/day. She should continue to push protein in her diet as well. -Recommend checking BMP this coming week either on Monday or Monday. She can do this at her PCP office. -If sodium is above 130 mmol/L, she does not need to follow-up with us. -However, if serum sodium is below 130, the patient should call to make an appointment to see as in our [place] office. The patient was given my business card in case she needs to make an appointment. (2) Hypertension: PLAN: - BP is better this morning. There is no urgency to change medication, and we will watch BP for now. She is on diltiazem only. -The patient was not on hydrochlorothiazide or other thiazide diuretic prior to admission. (3) Hypothyroidism: QUALIFIERS: Hypothyroidism type: unspecified Qualified Code(s): E03.9 - Hypothyroidism, unspecified PLAN: - TSH on 11/03/2021 was normal. Continue current dose of levothyroxine. -Low suspicion that hypothyroidism is contributing to hyponatremia since it is well treated. (4) Pneumonia: PLAN: - Antimicrobial treatment as per hospital medicine service.
--- NOTE | 2021-11-07 11:31 | DS.PCM_ITS ---
Providers Date of Admission: 11/03/21 Primary Care Physician: Dr. Armando Martinez, Consultations 11/04/21 08:02 Consult: Nephrology Routine Consulting Provider: Andre Black Reason for Consult: acute hyponatremia EMERGENT Consult: No MD Notified: Yes Date Notified: 11/04/21 Time Notified: 08:02 Method of Notification: Text Reason For Visit: PNEUMONIA, PAF W/ RVR, ACUTE HYPONATREMIA Diagnosis Discharge Diagnosis (1) Hyponatremia: Status: Acute Code(s): E87.1 - Hypo-osmolality and hyponatremia (2) Hypertension: Status: Chronic Code(s): I10 - Essential (primary) hypertension (3) Hypothyroidism: Status: Chronic Code(s): E03.9 - Hypothyroidism, unspecified Qualifiers: Hypothyroidism type: unspecified Qualified Code(s): E03.9 - Hypothyroidism, unspecified (4) Pneumonia: Status: Acute Code(s): J18.9 - Pneumonia, unspecified organism Medications at Discharge Home Medications apixaban 5 mg tablet 5 mg PO BID #60 tab 11/12/20 diltiazem HCl 120 mg capsule,24 hr,extended release 120 mg PO DAILY #90 cap 02/01/21 thyroid (pork) 30 mg tablet 30 mg PO DAILY tab 06/16/21 levofloxacin 750 mg PO DAILY #5 tab 11/07/21 Hospital Course Operations None Procedures None Summary of Care Provided Minutes Spent on Discharge: 40 Hospital Course: Patient is a 71-year-old [facility] female with a past medical history as outlined was admitted through the ED on 11/03/2021 with a complaint of worsening fatigue, malaise, cough and shortness of breath as well as nausea and she had also had some wheezing. She had been started on a Z-Alexander by her PCP but this did not help with her symptoms so she came into the ED. She had had a COVID test which was negative. Patient was not vaccinated against COVID. On admission, her COVID test was negative and chest x-ray showed subtle increased reticular opacities in the right lower lobe without alveolar consolidation. EKG done showed A. fib with RVR. She was given 1 dose of Cardizem bolus and admitted and managed for A. fib with RVR as well as community-acquired pneumonia. Patient did not require any drip and her heart rate became better controlled on her oral beta-blockers. Hospital course was complicated by hyponatremia and sodium was 114 on admission. Nephrology was consulted and patient was hydrated with IV fluids. Sodium corrected rapidly and so patient was given D5 water and tolvaptan to bring sodium down. Patient was weaned off of oxygen and did well. Sodium at time of discharge was 134. She was discharged on p.o. Levaquin for 5 days and is follow-up with her primary care doctor in 1 to 2 weeks. Nephrology also counseled patient that she should follow-up with her PCP for repeat BMP to monitor sodium levels. Patient seen and examined prior to discharge. She had no complaints and felt well. Review of systems otherwise negative. Labs and vitals reviewed. Home medication reviewed and reconciled. Physical Exam Const alert, oriented x3 and no apparent distress General Appearance: cooperative, comfortable and well kempt Exam Limitations: no limitations HEENT normocephalic, head/scalp atraumatic and moist oral mucous membranes Eyes PERRL, EOMs intact bilaterally and conjunctivae normal Neck no lymphadenopathy, supple and no JVD Resp Resp Narrative: diminished breath sounds bibasally, no wheezes or crackles. On room air Cardio regular rate, regular rhythm, S1 normal heart sound, S2 normal heart sound and no murmurs GI normal to inspection, nondistended, normoactive bowel sounds, soft to palpation, non-tender and non-distended Extremity normal to inspection, full ROM and no clubbing, cyanosis or edema Skin no rashes or lesions noted Neuro oriented x3, CN's II-XII intact bilaterally and moves all extremities Sensorium / Orientation: awake and alert Psych affect normal Weight / BMI Weight Weight: 172 lb 2.896 oz Body Mass Index (BMI) 27.0 ABG / Lab / Microbiology Data Result Diagrams: 11/07/21 05:15 11/07/21 05:15 Laboratory: Laboratory Results - last 24 hr 11/06/21 16:10: Sodium 126 L 11/06/21 21:45: Sodium 130 L 11/07/21 05:15: Sodium 134 L, Potassium 4.2, Chloride 97 L, Carbon Dioxide 30.0, Anion Gap 7, BUN 15, Creatinine 0.70, Estim Creat Clear Calc 45.20, Est GFR (MDRD) Af Amer 106, Est GFR (MDRD) Non-Af 88, BUN/Creatinine Ratio 21.4 H, Glucose 114 H, Calcium 8.4 L, Phosphorus 3.5, Albumin 2.5 L 11/07/21 05:15: WBC 9.4, RBC 4.06 L, Hgb 11.8 L, Hct 34.5 L, MCV 85.0, MCH 29.1, MCHC 34.2, RDW Std Deviation 40.3, RDW Coeff of Ed 13.2, Plt Count 411, MPV 8.0, Immature Gran % (Auto) 2.700 H, Neut % (Auto) 67.1, Lymph % (Auto) 18.3 L, [place] % (Auto) 10.3 H, Eos % (Auto) 1.1, Baso % (Auto) 0.5, Absolute Neuts (auto) 6.3, Absolute Lymphs (auto) 1.72, Nucleated RBC % 0 Microbiology: Microbiology 11/04/21 21:35 Sputum, Expectorated/Coughed Gram Stain - Final 11/04/21 21:35 Sputum, Expectorated/Coughed Respiratory Culture - Final Presumptive C albicans 11/03/21 20:38 Blood Culture (Wb) - Anticubital Right Blood Culture - Preliminary No growth in 48 hours. 11/03/21 20:04 Blood Culture (Wb) - Anticubital Right Blood Culture - Preliminary No growth in 48 hours. 11/03/21 21:00 Urine, Clean Catch Urine Culture - Final Mixed Gram Positive Organisms 11/04/21 03:10 Urine, Clean Catch Legionella Antigen - Final 11/04/21 03:10 Urine, Clean Catch Streptococcus pneumoniae Antigen (M - Final 11/03/21 20:06 Nasal Secretion SARS-CoV-2 Antigen (Rapid) - Final D/C Instructions Discharge Diet: Low fat / Low cholesterol Discharge Activity: Return to Normal Activity Weight Bearing Status: Weight bearing as tolerated Call your doctor if you observe: Fever of 101 or Higher, Shortness of breath, Dizziness, Swelling in the ankles, Chest pain, Increased palpitations (irregular heartbeat) and Uncontrolled pain Meaningful Use Info Meaningful Use Diagnoses (Choose all that apply): None applicable Discharge Plan Admission Admit Date/Time: 11/03/21 21:37 Primary Reason for Your Visit: afib with RVR Attending Provider: Nani Evans Primary Care Provider: Armando Martinez Consulting Providers: [facility] Discharge Orders/Prescriptions Prescriptions: New levofloxacin 750 mg tablet 750 mg PO DAILY Qty: 5 RF: 0 Continued apixaban 5 mg tablet 5 mg PO BID Qty: 60 RF: 6 thyroid (pork) [[employer] Thyroid] 30 mg tablet 30 mg PO DAILY RF: 0 diltiazem HCl 120 mg capsule,extended release 24 hr 120 mg PO DAILY Qty: 90 RF: 3 Referrals / Follow Up: Armando Martinez DO [Primary Care Provider] - Within 2 Weeks Disposition Disposition (needs filled in before D/C Order can be placed): Home, Self Care Charges/Coding Visit Charges Inpatient E&M: 31017 Disch Hosp
== END 2021-11-07 13:02 | disposition home or self-care (01) | DRG 193 ==
LOC: ED 20:31 → PCU 11-04 07:18
PROVIDERS: Internal Medicine Nephrology; Admitting Provider Family Medicine; Emergency Provider Emergency Medicine; PCP Family Medicine; Visit Provider Student in an Organized Health Care Education/Training Program
DX: J18.9 Pneumonia, unspecified organism (principal); J96.01 Acute respiratory failure with hypoxia; E87.1 Hypo-osmolality and hyponatremia; I48.0 Paroxysmal atrial fibrillation; I10 Essential (primary) hypertension; E87.6 Hypokalemia; E03.9 Hypothyroidism, unspecified; Z79.01 Long term (current) use of anticoagulants; Z28.3 Underimmunization status
CPT/HCPCS: 36415; 71045; 71275; 80048; 80053; 80069; 81001; 82570; 82728; 83605; 83615; 83735; 83880; 83935; 84133; 84145; 84295; 84300; 84439; 84443; 84484; 85025; 85379; 87040; 87070; 87086; 87088; 87205; 87426; 87449; 87635; 87641; 93005; 93306; 94640; 97162; 97165; 97166; 97802; 99251; 99285; J7030; J7040; Q9967; A4216; G0463; J2405; J2597; U0003; U0005

== ENCOUNTER 2021-12-02 10:20 | Outpatient (CLI) | payer SELFPAY ==
[2021-12-02 12:26] LABS: Basophil# 0.04 X10^3/uL; Basophil% 0.6 % (0-1); Eosinophils% 1.5 % (0-5); Hematocrit 40.4 % (37-47); Hemoglobin 13.1 g/dL (12.0-15.0); Lymphocyte % 29.5 % (19-41); Mean Corp Hgb Conc 32.4 g/dL (32-36); Mean Corpuscular Hgb 29.4 pg (27.0-32.0); Mean Corpuscular Volume 90.8 fL (81-99); Mean Platelet Vol. 10.1 fl (6.2-12.0); Monocyte# 0.65 X10^3/uL; Monocyte% 9.6 % (0-10); NRBC Flagged by Analyzer 0 % (0-5); Neutrophil # 3.99 X10^3/uL (2.7-7.7); Neutrophil % 58.7 % (47-70); Platelet Count 263 K/mm3 (150-450); RBC Distribution Width CV 14.5 % (11.6-14.6); RBC Distribution Width SD 48.6 fl (35.1-43.9); Red Blood Count 4.45 M/mm3 (4.2-5.4); White Blood Count 6.8 K/mm3 (4.4-11.0)
== END 2021-12-02 23:59 | disposition home or self-care (01) ==
PROVIDERS: PCP Family Medicine; Visit Provider Nurse Practitioner Gerontology
DX: I48.21 Permanent atrial fibrillation (principal)
CPT/HCPCS: 36415; 85025

== ENCOUNTER 2024-06-20 18:24 | Emergency (ER) | payer OTHER, SELFPAY ==
[2024-06-20 18:25] VITALS: BP 169/94; PULSE 120; RESP 18; TEMP 35.6; O2SAT 95
[2024-06-20 19:55] VITALS: BP 166/106; PULSE 95
[2024-06-20 20:00] VITALS: BP 170/92; PULSE 92; RESP 16; TEMP 35.8; O2SAT 94
--- NOTE | 2024-06-20 20:08 | CT_ITS ---
STUDY: CT ABDOMEN AND PELVIS WITH CONTRAST REASON FOR EXAM: Female, 74 years old. L sided abd pain RADIATION DOSAGE (If Supplied By Facility): CTDIvol = ( 15.50 ) mGy, DLP = ( 919.72 ) mGycm TECHNIQUE: Transaxial images were obtained from the dome of the diaphragm to the symphysis pubis without oral contrast. IV 100mL Isovue-370 was administered. Sagittal and coronal images were reconstructed. Individualized dose optimization techniques were used for this CT. COMPARISON: None. FINDINGS: Patchy areas of groundglass opacity in the right lower lobe possibly due to viral pneumonia. There are also chronic bronchiectatic changes in the lower lobes bilaterally. There is also mild subsegmental atelectasis or infiltrate at the right base anteriorly The heart is enlarged and there is severe enlargement of the atrial chambers bilaterally. There is mild coronary artery calcification Mild fatty infiltrated liver without mass or bile duct dilatation. Normal gallbladder and extrahepatic biliary system. Normal spleen. Normal pancreas. Normal bilateral adrenal glands. No evidence for renal obstruction. There is a cyst in right kidney which will not require additional imaging. Normal visualized stomach. Normal small intestine. Normal colon. The appendix is visualized and appears normal. Normal abdominal aorta. Normal inferior vena cava. Normal retroperitoneum. Normal urinary bladder. Uterus not visualized status post hysterectomy There is a large multi loculated fluid density in the left transverse rectus measuring approximately 10 x 5.9 x 14 cm demonstrating foci of increased attenuation suggesting acute and subacute hemorrhage projecting into the left anterior pelvic cavity. There is also a poorly defined extraperitoneal soft tissue mass approximately 4.7 x 5 cm with stranding in the fat in the prevesical space displacing the bladder posteriorly and towards the right Lumbar spine demonstrates mild spondylosis. Grade 1 spondylolisthesis at L5-S1 CT/Abdomen/Pelvis W IV Cont ONLY IMPRESSION: Findings which are most consistent with large hematoma in the left transverse rectus demonstrating both acute and subacute components as well as probable extraperitoneal hematoma within the left prevesical space displacing the bladder posteriorly and towards the right Other findings as above N.B. : The above Results were Read Back by Jorgito Sifuentes MD to Dr. Mio Arreguin MD, and understanding confirmed on 06/20/2024 22:16:06 (ET). Electronically Signed: Jorgito Sifuentes MD at 22:18 EDT ,
--- NOTE | 2024-06-20 20:09 | ED.VIS.GI ---
HPI HPI - GI History of Present Illness Chief Complaint: Abd Pain Informant: patient and family Narrative Narrative: Patient has had diffuse mid abdominal pain for the last 3 days, she has been constipated for longer than that feeling like she is to have a bowel movement but cannot think that is the problem. She denies any fevers, chills, nausea or vomiting. History of a hysterectomy and a no other abdominal surgeries. She was recently diagnosed with influenza, she states she is feeling better now but has had decreased activity for the past week. No bright red blood per rectum or melena, she is on warfarin for history of A-fib. [facility] Medical History Atrial fibrillation, permanent Essential hypertension Hypertension Non-toxic multinodular goiter Hypothyroidism Atrial fibrillation Home Medications ?Medication ?Instructions ?Recorded ?Last Taken ?Type thyroid (pork) 30 mg tablet 30 mg PO DAILY HYPOTHYROIDISM 06/16/21 Unknown History ([place] Thyroid) warfarin 5 mg tablet 5 mg PO DAILY #90 tabs 02/14/22 Unknown Rx Lalitha Vati 1 tablet PO .COMPLEX blood 03/24/22 Unknown Rx pressure #30 TABLETS Allergy/AdvReac Type Severity Reaction Status Date / Time amoxicillin Allergy Unknown unknown Verified 06/20/24 18:25 Penicillins Allergy Unknown Unknown Verified 06/20/24 18:25 apixaban (From Eliquis) AdvReac Nausea, Verified 06/20/24 18:25 Bruising Family History Father Myocardial infarction Mother CVA (cerebral vascular accident) Sister Heart disease Surgical History History of total hysterectomy Social History household members: spouse Smoking Status: Never smoker alcohol intake: never substance use type: does not use caffeine: Yes (occasional) ROS ROS ED Constitutional Constitutional ED: Denies chills or fever(s) Eyes Eyes: Denies change in vision or diplopia ENT ENT ED: Denies rhinorrhea or sore throat Cardiovascular Cardiovascular: Denies chest pain or palpitations Respiratory/Chest Respiratory/Chest: Denies cough or dyspnea Gastrointestinal Gastrointestinal: Reports abdominal pain and constipation; Denies diarrhea, nausea or vomiting Genitourinary Genitourinary ED: Denies dysuria or hematuria Musculoskeletal Musculoskeletal: Denies back pain or neck pain Integumentary Denies abscess or rash Neurologic Neurologic: Denies headache(s), paresthesias or weakness Psychiatric Psychiatric: Denies anxiety or suicidal thoughts EXAM Physical Exam Const Vital Signs: 06/20/24 18:25 06/20/24 19:55 06/20/24 20:00 Temperature 96.1 F L 96.5 F L Temperature Source Temporal Temporal Pulse Rate 120 H 95 92 Respiratory Rate 18 16 Blood Pressure 169/94 H 166/106 H 170/92 H Blood Pressure Mean 119 126 118 Pulse Ox 95 94 Oxygen Delivery Method Room Air Room Air 06/20/24 22:00 06/21/24 00:11 Temperature Temperature Source Pulse Rate 88 95 Respiratory Rate 16 93 H Blood Pressure 182/100 H 174/86 H Blood Pressure Mean 127 115 Pulse Ox 97 21 Oxygen Delivery Method Room Air Room Air Positive well nourished and well developed General Appearance ED: well developed and NAD HEENT Reports moist mucous membranes normocephalic and atraumatic Eyes PERRL and EOMs intact bilaterally Neck full ROM and supple Resp normal respiratory effort and clear to auscultation bilaterally Cardio regular rate, regular rhythm and no murmurs GI non-distended GI Narrative: Very tender left lower quadrant with voluntary guarding from the patient, less tender left upper quadrant and epigastrium, otherwise nontender. Normal bowel sounds present no significant distention. On rectal exam, there is a very scant amount of hard stool palpable right at the tip of my finger but unable able to reach it and do anything productive with it. There is no blood or tenderness. Normal perianal exam. Auscultation: normoactive bowel sounds Palpation: soft Back/Spine no CVA tenderness General Back: other FROM Extremity normal to inspection General Extremety ED: Negative for edema, pulses abnormal or tenderness General Extremity: Negative for edema or pulses abnormal Neuro oriented x3, CN's II-XII intact bilaterally and no sensory deficits noted Sensorium / Orientation: awake and alert Motor Exam: strength 5/5 throughout Skin no rashes or lesions noted and no wounds MDM MDM MDM Narrative Medical decision making narrative: Patient was given subsites enema, and had minimal results. Therefore they were amenable to doing more for workup including labs and CT to look and see if she has diverticulitis or other pathology. Labs show leukocytosis, hemoglobin at 10.7, much lower than her last one at 13 but this was a couple years ago, and her INR is 4.2. The other labs are unremarkable. I reviewed the CT images and report which I agree with, and I spoke with the radiologist over the phone. He was concerned at the patient appears to have a large rectus sheath hematoma with active extravasation concerning for active bleeding, and when I discussed that this was not due to any trauma and that her INR is elevated, he states that the findings in the perivesical region are likely the same process, consistent with spontaneous hemorrhage. Given all of this, the current chest recommendations involve actively reversing her anticoagulation, which at this point clearly outweighs the benefits of leaving her anticoagulated since it is just for prophylaxis against stroke, using vitamin K 5 mg IV and dose-appropriate PCC rather than plasma. Patient is stable, but I believe should be admitted for this due to the fact that she has active hemorrhaging on the CT. I am having nursing place ice packs on her abdomen in these areas as well. I do not think that any of this is emergently surgical, but the discussed with Dr. Bernard on for surgery, who recommends attempting to transfer the patient because if she does not respond to reversal, the next step would be evaluation by interventional radiology for vessel coiling. Discussing with patient, she would be amenable to looking into a hospital it can so we tried [facility] her choice. They accept her to the ICU. Lab Data Attestation: I reviewed the patient's lab results. Labs: Laboratory Results - last 24 hr 06/20/24 20:25 WBC 16.2 H RBC 3.72 L Hgb 10.7 L Hct 32.4 L MCV 87.1 MCH 28.8 MCHC 33.0 RDW Std Deviation 46.5 H RDW Coeff of Ed 14.6 Plt Count 436 MPV 8.7 Immature Gran % (Auto) 3.200 H Neut % (Auto) 78.0 H Lymph % (Auto) 9.8 L [place] % (Auto) 8.6 Eos % (Auto) 0.2 Baso % (Auto) 0.2 Absolute Neuts (auto) 12.6 H Absolute Lymphs (auto) 1.59 Nucleated RBC % 0 PT 40.0 H INR 4.2 H* Sodium 132 L Potassium 3.6 Chloride 92 L Carbon Dioxide 34.0 H Anion Gap 6 BUN 11 Creatinine 0.73 Est GFR (MDRD) Af Amer 100 Est GFR (MDRD) Non-Af 83 BUN/Creatinine Ratio 15.0 Glucose 162 H Calcium 8.7 Radiography Diagnostic Testing: Clinical Impression(s) from Imaging Studies Abdomen/Pelvis CT 06/20/24 20:08 IMPRESSION: Findings which are most consistent with large hematoma in the left transverse rectus demonstrating both acute and subacute components as well as probable extraperitoneal hematoma within the left prevesical space displacing the bladder posteriorly and towards the right Other findings as above N.B. : The above Results were Read Back by Jorgito Sifuentes MD to Dr. Mio Arreguin MD, and understanding confirmed on 06/20/2024 22:16:06 (ET). Electronically Signed: Jorgito Sifuentes MD at 22:18 EDT , ADDENDUM: 06/20/242223 IMPRESSION: Findings which are most consistent with large hematoma in the left transverse rectus demonstrating both acute and subacute components as well as probable extraperitoneal hematoma within the left prevesical space displacing the bladder posteriorly and towards the right Other findings as above N.B. : The above Results were Read Back by Jorgito Sifuentes MD to Dr. Mio Arreguin MD, and understanding confirmed on 06/20/2024 22:16:06 (ET). Electronically Signed: Jorgito Sifuentes MD at 22:18 EDT , Rhythm Strip Rhythm Strip: A-fib Rate: 95 Ectopy: None EKG Initial EKG: Attestation: I personally reviewed and interpreted this EKG as follows: Interpretation: No Acute Injury Pattern and Atrial Fibrillation Management Discussion w/another healthcare provider: Hospitalist, Veterinary Medical Officer (karan Bernard; IM physician ERASMO Billings) and Radiologist Critical Care Time Critical Care Time: Yes Critical care time (excluding procedures): 30-74 minutes (34 min), Including time spent:, Discussing w/Patient &/or Family/Authorization Representative, Discussing w/Consultants, Arranging Admission or Transfer and Performing Direct Patient Care at Bedside Discharge Plan Triage Chief Complaint: Abd Pain ED Provider: Mio Arreguin Dx/Rx/DC Orders Clinical Impression: Rectus sheath hematoma, Supratherapeutic INR, Atrial fibrillation, permanent Prescriptions: No Action thyroid (pork) [[place] Thyroid] 30 mg tablet 30 mg PO DAILY warfarin 5 mg tablet 5 mg PO DAILY Qty: 90 3RF Rx Instructions: As directed; Managed by PCP Lalitha Ogdeni 1 tablet PO .COMPLEX Qty: 30 0RF Rx Instructions: 1 TABLET PO as directed (over the counter); Primary Care Provider: Armando Martinez Referrals: Armando Martinez DO [Primary Care Provider] - Print Language: Latvian Disposition Disposition: Acute Care Hospital Discharge Location: [facility]
[2024-06-20] MEDS: 0.9% Normal Saline (1000mL) 1,000 ML 200 ML IV (20:23)
[2024-06-20 20:41] LABS: Absolute Lymphocyte Count 1.59 X10^3/uL (0.83-4.51); Absolute Neutrophil Count 12.6 X10^3/uL (2.0-7.7); Basophil# 0.04 X10^3/uL; Basophil% 0.2 % (0-1); Eosinophil# 0.03 X10^3/uL; Eosinophils% 0.2 % (0-5); Hematocrit 32.4 % (37-47); Hemoglobin 10.7 g/dL (12.0-15.0); Lymphocyte # 1.59 X10^3/ul (0.83-4.51); Lymphocyte % 9.8 % (19-41); Mean Corpuscular Hgb 28.8 pg (27.0-32.0); Mean Corpuscular Volume 87.1 fL (81-99); Mean Platelet Vol. 8.7 fl (6.2-12.0); Monocyte# 1.39 X10^3/uL; Monocyte% 8.6 % (0-10); NRBC Flagged by Analyzer 0 % (0-5); Neutrophil # 12.59 X10^3/uL (2.7-7.7); Platelet Count 436 K/mm3 (150-450); RBC Distribution Width CV 14.6 % (11.6-14.6); RBC Distribution Width SD 46.5 fl (35.1-43.9); Red Blood Count 3.72 M/mm3 (4.2-5.4); White Blood Count 16.2 K/mm3 (4.4-11.0)
[2024-06-20 20:52] LABS: Anion Gap 6 (5-15); BUN 11 mg/dL (7-18); Calcium,Total 8.7 mg/dL (8.5-10.1); Chloride 92 mmol/L (98-107); Creatinine, Serum 0.73 mg/dL (0.55-1.02); EST Glomerular Filtration Rate 83 mL/min (>60); Est Glom Filt Rate - Afr Amer 100 mL/min (>60); Glucose 162 mg/dL (74-106); Potassium 3.6 mmol/L (3.5-5.1); Sodium Level 132 mmol/L (136-145)
[2024-06-20 21:00] LABS: International Normalized Ratio 4.2
[2024-06-20 22:00] VITALS: BP 182/100; PULSE 88; RESP 16; O2SAT 97
[2024-06-20 22:29] VITALS: BMI 30.2
--- NOTE | 2024-06-20 22:29 | EKG12_ITS ---
Test Reason : DYSRHYTHMIA Blood Pressure : / mmHG Vent. Rate : 095 BPM Atrial Rate : 000 BPM P-R Int : 000 ms QRS Dur : 080 ms QT Int : 358 ms P-R-T Axes : 000 001 025 degrees QTc Int : 449 ms Atrial fibrillation Abnormal ECG Confirmed by Jesús East ([id number]), editor magazine THOMAS SALINAS ([id number]) on 06/21/2024 8:20:16 AM Referred By: Confirmed By:Jesús East
[2024-06-20] MEDS: Phytonadione (Vit K) 5 MG in 0.9% Normal Saline (50mL Bag) 50 ML 150 MG IV (23:09)
[2024-06-20] MEDS: HUM PROTHROMBIN CPLX(PCC)-LANS 2,700 UNIT in Viaflex Bag 1 BAG 500 UNIT IV (23:35)
[2024-06-21 00:11] VITALS: BP 174/86; PULSE 95; RESP 93; O2SAT 21
--- NOTE | 2024-06-21 00:14 | ED.RN ---
Left voicemail for to call the ER for an update.
[2024-06-21 01:57] VITALS: BP 136/85; PULSE 90; RESP 27; O2SAT 91
[2024-06-21 02:32] VITALS: BP 155/98; PULSE 96; RESP 18; TEMP 36.7; O2SAT 94
[2024-06-21] MEDS: 0.9% Normal Saline (1000mL) 1,000 ML 200 ML IV (02:36)
== END 2024-06-21 03:01 | disposition short-term general hospital (02) ==
PROVIDERS: Emergency Provider Emergency Medicine; PCP Family Medicine; Visit Provider Emergency Medicine
DX: M79.81 Nontraumatic hematoma of soft tissue (principal); I48.21 Permanent atrial fibrillation; R79.1 Abnormal coagulation profile
CPT/HCPCS: 74177; 80048; 85025; 85610; 93005; 96365; 96366; 96367; 99285; J7030; A4216; C9159; J3490